=== PATIENT | male | born 1945 | race Caucasian/White ===

== ENCOUNTER → 2021-08-29 11:09 | Outpatient (CLI) | payer MEDICARE, SELFPAY ==
--- NOTE | ~2021-08-29 | XR_ITS ---
EXAMINATION: XR ankle LT min 3V DATE: 08/29/2021 11:52 INDICATION: Left ankle injury and pain. TECHNIQUE: 4 views of left ankle were obtained. COMPARISON: None. FINDINGS: There is an oblique fracture of medial malleolus in near-anatomic alignment. There is a com minuted fracture of distal fibula with medial aspect of the fracture line 3 mm distal to the level of the tibial plafond in near-anatomic alignment. Joint spaces are normal. There is a 4 mm loose body i n the ankle joint posteriorly. There are enthesophytes at the posterior and plantar aspects of calcan eal tuberosity. Ankle soft tissue swelling is noted. There is an ankle joint effusion. IMPRESSION: 1. Nondisplaced fractures of medial and lateral malleoli. 2. Ankle joint effusion with loose body. Reviewed, dictated and finalized at location A. RMATION SYSTEMS AUDITOR
== END ==
PROVIDERS: PCP Family Medicine; Visit Provider Family Medicine
DX: S82.845A Nondisplaced bimalleolar fracture of left lower leg, initial encounter for closed fracture (principal); M79.89 Other specified soft tissue disorders; M25.472 Effusion, left ankle; M23.42 Loose body in knee, left knee
CPT/HCPCS: 73610

== ENCOUNTER 2021-10-24 10:30 | Outpatient (RCR) | payer MEDICARE, SELFPAY ==
--- NOTE | 2021-10-17 11:34 | PTOPEVAL ---
PHYSICAL THERAPY EVALUATION and PLAN OF CARE Thank you for referring Darion Polanco to [facility].? The patient is scheduled to be seen for therapy? 1-2x/week for 2-4 weeks. Please review, sign, date and return this plan of care OBDULIA. I agree with and certify that the following plan of care is medically necessary. Referring Physician Date Attending Provider: Aaron Lynch MD Evaluation Diagnosis left bimalleolar fracture Onset 08/29/2021 Subjective Information fell off the deck and Query Text:As Reported By Patient/ fractured left ankle. he has Family had a walking boot and walker since then. We are going to be working on weaning off the boot and the walker. He has been wearing the boot all the time, including while sleep. I instructed him to stop wearing the boot while sleeping and to start taking the boot off during the day to do his exericses. I also instructed to start putting on his shoe instead of the boot and to stand and weight shift and walk if he feels comfortable (he does not have shoe here today) Through conversation I learn that Darion is nervous about breaking his ankle again because he does fall on occasion. Because of this he relies on the boot. I discussed this with him and encouraged him that with normal activity and walking the ankle will not break again and we will work on strengthening and balance techniques when he is here. Pain Assessment Timing of Pain Assessment Timing of Pain Assessment Assessment Pain Scale Pain Scale Used Numeric (1 - 10) Self Report Pain Assessment Left Ankle(s) Reported Pain Level 2 Pain Description Aching Pain Score Pain Score 2: Self Report Interventions Used Interventions Used By Clinicians Exercise Lower Extremity Range of Motion Ankle/Foot Range of Motion Left Ankle Dorsiflexion With Knee Flexed 10 Range of Motion - Active Ankle Plantarflexion Range of Motion - 45 Active
--- NOTE | 2021-10-27 11:00 | PCPTNOTE ---
Patient called & cancelled scheduled appointment this date due to to snowy weather.
--- NOTE | 2021-11-03 09:48 | PCPTNOTE ---
Patient called & rescheduled today's appt for 11/17/21.
--- NOTE | 2021-11-17 08:49 | PCPTNOTE ---
Patient called & cancelled scheduled appointment this date due to the weather. I spoke with him on the phone and he feels that he is doing well and getting around well and does not need to reschedule this appt.
--- NOTE | 2021-11-17 08:49 | PCPTNOTE ---
Admitting Provider: Attending Provider: Aaron Lynch MD Patient:Darion Polanco Date of :1945 Darion participated in evaluation for decreased mobility secondary to ankle fracture on 10/17/21. He participated in a follow up appt on 10/24/21 and has cancelled several appts due to inclement weather. I spoke with him on the phone today and he states that he feels like he is able to move about and get around safely and does not need any further PT appts; therefore he will be discharged at this time. Thank you for referring this patient to [facility]. Please review, sign, date and return this discharge summary OBDULIA. I have been updated about the patient's current status and I agree with discharge from the above service at this time. Referring Physician Date
== END 2021-11-18 10:58 | disposition home or self-care (01) ==
LOC: ANHPT 10:30
PROVIDERS: PCP Family Medicine; Visit Provider Orthopaedic Surgery
DX: S82.842D Displaced bimalleolar fracture of left lower leg, subsequent encounter for closed fracture with routine healing (principal)
CPT/HCPCS: 97110; 97162

== ENCOUNTER 2023-06-19 11:44 | Emergency (ER) | payer MEDICARE, SELFPAY ==
[2023-06-19] VITALS (13 sets, daily range): BP systolic 104–125; BP diastolic 54–76; PULSE 82–99; RESP 11–21; TEMP 36.6; O2SAT 92–98
--- NOTE | ~2023-06-19 | CT_ITS ---
EXAMINATION: CT brain wo con DATE: 06/19/2023 14:38 INDICATION: Head injury TECHNIQUE: Computed tomography (CT) of the head was performed without intravenous contrast. Sagittal and coronal reconstructions were performed. The mA was adjusted according to patient size. Iterative reconstruction technique was employed. The dose-length product was 1135.00 mGy-cm. COMPARISON: head CT dated 01/21/2018 FINDINGS: No calvarial fracture. No acute intracranial hemorrhage, acute infarction or abnormal extra axial flu id collection. There is mild scattered white matter hypoattenuation consistent with chronic small ves analy ischemic disease. Symmetric prominence of the sulci and ventricles consistent with moderate age-a ppropriate diffuse cerebral volume loss. No mass/mass effect. Changes of interval bilateral intraocul ar lens replacement. The mastoid air cells are normal. Mucous retention cyst at the base of the left maxillary sinus. IMPRESSION: 1. No fracture or acute intracranial process. 2. Age-related changes including moderate diffuse volume loss and mild scattered white matter hypoatt enuation consistent with chronic small vessel ischemic disease. Reviewed, dictated and finalized at location A. IMPRESSION: 1. No fracture or acute intracranial process. 2. Age-related changes including moderate diffuse volume loss and mild scattere d white matter hypoattenuation consistent with chronic small vessel ischemic di sease.
--- NOTE | ~2023-06-19 | XR_ITS ---
EXAMINATION: XR ribs BI 3V w CXR 2V DATE: 06/19/2023 12:47 INDICATION: Bilateral rib pain. Fall. TECHNIQUE: Frontal and lateral views of the chest and 2 views of the right ribs and 2 views of the le ft ribs on a total of 8 radiographs were obtained. COMPARISON: Chest and rib radiographs 01/21/2018, chest CT 02/12/2019 FINDINGS: CHEST TWO VIEWS: The lungs are hyperexpanded with lucencies and chronic interstitial opacities, consi stent with emphysema. No pleural effusion or pneumothorax. The heart size is normal. There is mild ch ronic anterior wedging of multiple vertebral bodies. BILATERAL RIBS: There are old healed bilateral rib fractures. IMPRESSION: 1. Old healed bilateral rib fractures. No acute fracture identified. 2. Emphysema. Reviewed, dictated and finalized at location A.
--- NOTE | 2023-06-19 14:11 | ED.FALL ---
HPI - Fall General Chief Complaint: Fall Stated Complaint: rib pain Time Seen by Provider: 06/19/23 13:42 History of Present Illness HPI Narrative: 57-year-old male present emergency department for evaluation for left-sided rib pain after having a ground-level fall on the . Patient states that he does have issues with gait instability and was walking while carrying food and patient states he stumbled. He struck his head but denies any loss consciousness. Patient does have left-sided rib tenderness to palpation. Patient does report generalized tenderness everywhere. Related Data Home Medications Medication Instructions Recorded Confirmed acetazolamide 125 mg tablet 125 mg PO .PRN 09/01/21 04/27/23 lisinopril 40 mg tablet 40 mg PO DAILY 09/01/21 04/27/23 phenytoin sodium extended 100 mg 100 mg PO TID 09/01/21 04/27/23 capsule rosuvastatin 5 mg tablet 5 mg PO DAILY 09/01/21 04/27/23 vit C 250 mg-vit E 90 mg-zinc 40 1 tablet PO BID 04/27/23 04/27/23 mg-copper 1 [id number] capsule (PreserVision AREDS-2) Allergies Allergy/AdvReac Type Severity Reaction Status Date / Time No Known Allergies Allergy Verified 06/19/23 11:45 Review of Systems Review of Systems: All systems reviewed & are unremarkable except as noted in HPI and below PMFSH Past Medical History Medical History 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 Epilepsy Essential (primary) hypertension Personal history of colonic polyps Thoracic aortic aneurysm, without rupture, unspecified Family History Family History Other Heart disease Social History Social History (Updated 05/21/23 @ 12:24 by TIERRA Rosales) Smoking status: Former smoker Alcohol intake: current Substance use: never Lack of Transportation: No Lack of Food: Never True Current Housing: I Have Housing Concerned About Future Housing: No Difficulty Paying Gas/Electric Bills: No Difficulty Paying for Meds: No Currently Unemployed: No Education: Master's Degree or Higher Difficulty w/ Childcare or Family Care: No Living arrangements: with family Occupation/Education: retired Gender identity (if verbalized by the patient): Male Sexual Orientation (if Verbalized by the Patient): Straight or Heterosexual Exam Narrative: APPEARANCE: Well appearing, no pain, no distress, well-nourished. HEAD: normocephalic, atraumatic. EYES: PERRLA/EOMI, conjunctivae clear. NOSE: Normal no drainage NECK: Supple. No adenopathy, no masses. RESPIRATORY: Airway patent, respirations nonlabored. Clear to auscultation bilaterally, no rales, rhonchi, wheezing. CARDIOVASCULAR: Regular rate and rhythm without murmurs rubs or gallops. ABDOMINAL: No abdominal tenderness to palpation MUSCULOSKELETAL: Moves all extremities. Left-sided rib tenderness to palpation NEURO: Alert. Cranial nerves II through XII intact. Grossly intact SKIN: Warm, dry. Normal Color Course Course Emergency Course: 77-year-old male presented to ED for evaluation of left-sided rib pain after having a ground-level fall. Patient does have a healing laceration to his scalp, no laceration repair needed. Head CT is being ordered to evaluate for intracranial abnormality. Head CT was negative for acute intracranial normality. No evidence of rib fractures on the chest x-ray. Patient was provided medications for pain control and provided incentive spirometer in the ED. Patient will be provided medications for pain control for home. Patient and family were updated on the results and on reasons to return to the emergency department. All questions concerns were addressed and patient was well-appearing at time of discharge Vital Signs Vital signs:
[2023-06-19] MEDS: HYDROcodone/acetaminophen (*CRX) 5-325 MG TABLET 1 TAB PO (14:14)
[2023-06-19] MEDS: CYCLOBENZAPRINE HCL 10 MG TABLET PO (14:15)
--- NOTE | 2023-06-19 14:59 | PC.NURSE ---
respiratory therapy educated pt on incentive spirometer use and pt verbalized and return demonstrated use to RN.
== END 2023-06-19 15:10 | disposition home or self-care (01) ==
PROVIDERS: Emergency Provider Emergency Medicine; PCP Family Medicine
DX: S20.212A Contusion of left front wall of thorax, initial encounter (principal); S09.90XA Unspecified injury of head, initial encounter; W01.0XXA Fall on same level from slipping, tripping and stumbling without subsequent striking against object, initial encounter; J44.9 Chronic obstructive pulmonary disease, unspecified; I25.10 Atherosclerotic heart disease of native coronary artery without angina pectoris; G40.909 Epilepsy, unspecified, not intractable, without status epilepticus; I71.20 Thoracic aortic aneurysm, without rupture, unspecified; Z87.891 Personal history of nicotine dependence
CPT/HCPCS: 70450; 71046; 71110; 99284; A9270

== ENCOUNTER 2024-09-08 09:44 | Emergency (ER) | payer MEDICARE, SELFPAY ==
--- NOTE | ~2024-09-08 | CT_ITS ---
EXAMINATION: CT hip LT wo con DATE: 09/08/2024 11:53 INDICATION: Lucency at the left greater trochanter. TECHNIQUE: High resolution computed tomography (CT) of the left hip was performed without intravenous contrast. Additional sagittal and coronal reconstructions were performed. Automated exposure control and iterative reconstruction technique were employed. The dose-length product was 212.12 mGy-cm. COMPARISON: 09/08/2024 FINDINGS: Bone alignment is normal. No fracture or suspected osteonecrosis. No evident lytic lesion at the grea ter trochanter with artifactual appearance of a lytic lesion on prior CT resulting from superimpositi on of soft tissue shadows. There is and 8 mm nonaggressive likely benign lytic lesion at the posterio r inferior intratrochanteric region of the proximal left femur with thin sclerotic margins. Mild oste oarthritis at the left hip and sacroiliac joints. L5-S1 facet joint osteoarthritis, severe on the lef t and at least moderate severity on the right. Enthesopathic calcifications at the left ischial tuber osity origin of the proximal left hamstring tendons. Moderate diverticulosis along the visualized sig moid colon without adjacent from trace stranding to suggest diverticulitis. Prostatomegaly measuring 5.2 x 4.0 cm. No pathologically enlarged left pelvic or inguinal lymphadenopathy. IMPRESSION: 1. No acute osseous abnormality. 2. 8 mm likely benign lytic lesion with thin sclerotic margins at the inferior intratrochanteric prox imal left femur. No lytic lesion at the left greater trochanter at the site of the likely artifactual lucency identified on prior radiographs. Reviewed, dictated and finalized at location A. R SOFTENER SERVICE SUPERVISOR IMPRESSION: 1. No acute osseous abnormality. 2. 8 mm likely benign lytic lesion with thin sclerotic margins at the inferior intratrochanteric proximal left femur. No lytic lesion at the left greater troc hanter at the site of the likely artifactual lucency identified on prior radiog raphs.
--- NOTE | ~2024-09-08 | XR_ITS ---
XR hip LT 2V w AP pelvis Ordering provider: Liam Jerome III, DO History: . fall, pain . Comparison: None. FINDINGS: BONES: Longitudinal lucency is seen in the area of the greater trochanter which may be a summation sh adow but fracture cannot be excluded. Follow-up and further evaluation advised. HIP JOINT SPACES: Normal. SACROILIAC JOINT SPACES/LUMBAR SPINE: The sacroiliac joint spaces are normal. Mild degenerative eastman es of the visualized lower lumbar spine. PUBIC SYMPHYSIS: Normal. SOFT TISSUES: Normal. IMPRESSION: Possible fracture in the left greater trochanter. Further evaluation advised. Reviewed, dictated and finalized at location A. ER OPERATOR HELPER
--- NOTE | ~2024-09-08 | XR_ITS ---
EXAMINATION: XR ribs BI 3V w CXR 2V DATE: 09/08/2024 10:55 INDICATION: Bilateral rib pain post fall TECHNIQUE: AP and lateral views of the chest and 3 views of the left ribs and 3 views of the right ri bs ribs were obtained. COMPARISON: Chest radiograph dated 06/19/23. And CT dated 02/12/2019 FINDINGS: Again seen are the posterior right 10th rib fracture, few old anterior right rib fractures and a few lateral left rib fractures. No definitively new or acute appearing rib fractures identified. Lungs ar e hyperexpanded with flattening of the diaphragm, increased retrosternal clear space and increased dru cency in the upper lung zones consistent with emphysema better appreciated on prior CT mild elevation the left hemidiaphragm with chronic linear discoid atelectasis/scarring at the lingula. No other air space opacities, pulmonary edema, pleural effusion or pneumothorax. Heart size is normal. Mild thorac ic spondylosis with chronic minimal to mild anterior wedging of a few mid and lower thoracic vertebra l bodies. IMPRESSION: 1. Old healed bilateral rib fractures. No acute fracture identified. 2. Emphysema and mild chronic scarring at the lingula. Reviewed, dictated and finalized at location A. LE WIRE INSERTER
[2024-09-08 10:13] VITALS: BP 128/65; PULSE 94; RESP 16; TEMP 36.4; O2SAT 93
[2024-09-08 11:58] LABS: Basophils Percent Auto 0.5 % (0.2-1.2); Eosinophils Absolute Auto 0.1 K/mm3 (0-0.3); Eosinophils Percent Auto 1.6 % (0-4.4); Hematocrit 38.4 % (42.0-52.0); Hemoglobin 12.6 g/dL (14.0-18.0); Immature Granulocyte Absolute 0.03 K/mm3 (0.00-0.031); Immature Granulocyte Percent A 0.4 % (0-0.5); Lymphocytes Absolute Auto 0.93 K/mm3 (0.9-3.2); Lymphocytes Percent Auto 10.9 % (18.3-44.2); Mean Corpuscular HGB Conc 32.8 g/dl (32-36); Mean Corpuscular Hemoglobin 31.6 pg (26-34); Mean Corpuscular Volume 96.2 fl (80-100); Mean Platelet Volume 9.5 fl (7.4-10.4); Monocytes Absolute Auto 1.1 K/mm3 (0.1-0.6); Monocytes Percent Auto 12.7 % (2.6-8.5); Neutrophils Absolute Auto 6.3 K/mm3 (1.3-6.7); Neutrophils Percent Auto 73.9 % (45.5-73.1); Platelet Count Result 263 k/mm3 (150-375); Red Blood Count 3.99 M/mm3 (4.6-6.20); Red Cell Distribution Width 13.2 % (11.5-14.5); White Blood Count 8.6 K/mm3 (4.5-10.0)
--- NOTE | 2024-09-08 12:01 | ED_ITS ---
HPI - Fall General Chief Complaint: Fall Stated Complaint: fall Time Seen by Provider: 09/08/24 11:20 History of Present Illness HPI Narrative: Pt presents with complaints of left hip and left rib pain afer ground level fall. Pt denies LOC or neck pain. 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 Epilepsy Essential (primary) hypertension Personal history of colonic polyps Protein-calorie malnutrition, mild Thoracic aortic aneurysm, without rupture, unspecified Family History Family History Other Heart disease Social History Social History Smoking status: Former smoker Alcohol intake: current Substance use: never Substance use type: does not use Lack of Transportation: No Lack of Food: Never True Current Housing: I Have Housing Concerned About Future Housing: No Difficulty Paying Gas/Electric Bills: No Difficulty Paying for Meds: No Currently Unemployed: No Education: Master's Degree or Higher Difficulty w/ Childcare or Family Care: No Living arrangements: with family Occupation/Education: retired Gender identity (if verbalized by the patient): Male Sexual Orientation (if Verbalized by the Patient): Straight or Heterosexual Exam 2 Const: General: healthy appearing and no acute distress Nutritional Appearance: well nourished Orientation/consciousness: patient oriented x3 Limitations: no limitations HENMT: Head: normal to inspection Eyes: Pupils: Equal, round and reactive pupils present Neck: Neck: normal visual inspection Chest: Chest palpation & inspection: normal inspection of the chest and tenderness rib (left lateral ribs) Cardio: Rate: regular rate Rhythm: regular rhythm GI: Auscultation: normal bowel sounds Skin: General skin exam: normal color Rashes: no rashes Wounds: no wounds Neuro: General: patient oriented x3, moves all extremities and CN's II-XI intact bilaterally Speech: normal speech Extrem: Other: tender left hip to palpation Psych: Mental Status: mental status grossly normal Affect: normal affect Attitude: cooperative Course Vital Signs Vital signs: Vital Signs Temperature 97.5 F L 09/08/24 10:13 Pulse Rate 94 09/08/24 10:13 Respiratory Rate 16 09/08/24 10:13 Blood Pressure 128/65 09/08/24 10:13 Pulse Oximetry 93 09/08/24 10:13 Oxygen Delivery Room Air 09/08/24 10:13 Temperature 97.5 F L 09/08/24 10:13 Pulse Rate 84 09/08/24 13:30 Respiratory Rate 16 09/08/24 13:30 Blood Pressure 138/86 09/08/24 13:30 Pulse Oximetry 98 09/08/24 13:30 Oxygen Delivery Room Air 09/08/24 10:13 MDM - Fall MDM Narrative Medical decision making narrative: Pt suffered glf has some pain in left hip and left ribs. will get x rays. possiblew lucency greater troch left hip cxr fine. will get CT hip. CT shows no fx at mentioned site but has benign lytic lesion. will have follow up with ortho and prescribe some pain meds. Lab Data 09/08/24 11:44 09/08/24 11:44 Labs: Lab Results 09/08/24 Range/Units 11:44 WBC 8.6 (4.5-10.0) K/mm3 RBC 3.99 L (4.6-6.20) M/mm3 Hgb 12.6 L (14.0-18.0) g/dL Hct 38.4 L (42.0-52.0) % MCV 96.2 (80-100) fl MCH 31.6 (26-34) pg MCHC 32.8 (32-36) g/dl RDW 13.2 (11.5-14.5) % Plt Count 263 (150-375) k/mm3 MPV 9.5 (7.4-10.4) fl Immature Gran % (Auto) 0.4 (0-0.5) % Neut % (Auto) 73.9 H (45.5-73.1) % Lymph % (Auto) 10.9 L (18.3-44.2) % Marion % (Auto) 12.7 H (2.6-8.5) % Eos % (Auto) 1.6 (0-4.4) % Baso % (Auto) 0.5 (0.2-1.2) % Lymph # (Auto) 0.93 (0.9-3.2) K/mm3 Marion # (Auto) 1.1 H (0.1-0.6) K/mm3 Eos # (Auto) 0.1 (0-0.3) K/mm3 Baso # (Auto) 0.0 (0.0-0.1) K/mm3 Abs Immat Gran (auto) 0.03 (0.00-0.031) K/mm3 Absolute Neuts (auto) 6.3 (1.3-6.7) K/mm3 Absolute Nucleated RBC 0.000 (0.0-0.012) K/mm3 Nucleated RBC % 0.0 (0.0-0.2) % PT 14.3 (11.1-14.7) Seconds INR 1.1 APTT 25.9 (22.3-36.8) Seconds Sodium 136 L (137-145) mmol/L Potassium 4.0 (3.4-5.0) mmol/L Chloride 105 (98-107) mmol/L Carbon Dioxide 26 (22-30) mmol/L Anion Gap 5 (4-12) mmol/L BUN 12 (9-20) mg/dL Creatinine 0.60 L (0.7-1.3) mg/dL Estim Creat Clear Calc 78 ml/min Estimated GFR > 60 (59 - ) Glucose 113 H (65-110) mg/dL Calcium 8.7 (8.4-10.2) mg/dL Total Bilirubin 0.6 (0.2-1.3) mg/dL AST 28 (17-59) U/L ALT 33 (6-50) U/L Alkaline Phosphatase 119 (38-126) U/L Total Protein 7.0 (6.3-8.2) g/dL Albumin 4.2 (3.5-5.1) g/dL Blood Type B Positive Antibody Screen Negative Discharge Plan Discharge Clinical Impression: Lytic bone lesion of hip Patient Disposition: Home, Self-Care Condition: Stable Instructions: Antibiotic Form, Fall Prevention for Older Adults (ED), Osteolysis (ED) Patient Language: [place] Citizen Prescriptions: New hydrocodone-acetaminophen 5-325 mg tablet 1 tablet PO Q8H PRN (Reason: pain) Qty: 14 0RF No Action acetaminophen [Tylenol Extra Strength] 500 mg tablet 1,000 mg PO DAILY PRN (Reason: pain) Qty: 90 0RF Breztri Aerosphere 160-9-4.8 mcg/actuation HFA aerosol inhaler 2 inh inhalation BID Qty: 10.7 0RF PreserVision AREDS-2 250-90-40-1 mg capsule 1 tablet PO BID phenytoin sodium extended 100 mg capsule 200 mg PO BID Qty: 400 1RF rosuvastatin 5 mg tablet 5 mg PO DAILY Qty: 100 1RF lisinopril 40 mg tablet 40 mg PO DAILY Qty: 100 1RF Follow-up/Referrals: Kvng Cook MD [Primary Care Provider] -
[2024-09-08 12:08] LABS: Alanine Aminotransferase 33 U/L (6-50); Albumin Level 4.2 g/dL (3.5-5.1); Alkaline Phosphatase 119 U/L (38-126); Anion Gap 5 mmol/L (4-12); Aspartate Amino Transferase 28 U/L (17-59); Bilirubin,Total 0.6 mg/dL (0.2-1.3); Blood Urea Nitrogen 12 mg/dL (9-20); Calcium 8.7 mg/dL (8.4-10.2); Carbon Dioxide 26 mmol/L (22-30); Chloride 105 mmol/L (98-107); Estimated CRCL calculation 78 ml/min; Estimated Glomerular Filt Rate > 60; Glucose 113 mg/dL (65-110); Sodium 136 mmol/L (137-145)
[2024-09-08 12:11] LABS: INR 1.1; Prothrombin Time 14.3 Seconds (11.1-14.7)
[2024-09-08 12:12] LABS: Partial Thromboplastin Time 25.9 Seconds (22.3-36.8)
[2024-09-08 13:30] VITALS: BP 138/86; PULSE 84; RESP 16; O2SAT 98
== END 2024-09-08 13:31 | disposition home or self-care (01) ==
PROVIDERS: Emergency Provider Emergency Medicine; PCP Family Medicine
DX: S79.912A Unspecified injury of left hip, initial encounter (principal); M89.9 Disorder of bone, unspecified; I25.10 Atherosclerotic heart disease of native coronary artery without angina pectoris; I10 Essential (primary) hypertension; J43.9 Emphysema, unspecified; G40.909 Epilepsy, unspecified, not intractable, without status epilepticus; Z86.0100 Personal history of colon polyps, unspecified; Z87.891 Personal history of nicotine dependence; Z79.899 Other long term (current) drug therapy; W18.30XA Fall on same level, unspecified, initial encounter
CPT/HCPCS: 36415; 71046; 71110; 73502; 73700; 80053; 85025; 85610; 85730; 86850; 86900; 86901; 96361; 96374; 99284; J2405; J7030

== ENCOUNTER 2025-04-14 13:03 | Inpatient (IN) | payer MEDICARE, SELFPAY ==
[2025-04-14] VITALS (16 sets, daily range): BP systolic 110–134; BP diastolic 66–89; PULSE 100–118; RESP 18–28; TEMP 36.4–36.6; O2SAT 91–96; BMI 19.8
--- NOTE | ~2025-04-14 | XR_ITS ---
XR chest 1V portable 04/14/2025 13:50 Indication: Shortness of breath Procedure: AP portable chest Comparison: Comparison to multiple prior studies sequentially, with oldest reviewed study dated 04/17. Findings: There are healed left lower rib fractures. Mild chronic interstitial infiltrates of the dariana g bases. The lungs are hyperinflated which is consistent with, but not diagnostic of chronic obstruct zachary pulmonary disease. Mildly elevated left diaphragm. Blunting left lateral costophrenic recess may represent a small effusion or pleural thickening. Impression: 1: Blunting left lateral costophrenic recess may represent a small effusion or pleural thickening. Reviewed, dictated and finalized at location A. Impression: 1: Blunting left lateral costophrenic recess may represent a small effusion or pleural thickening.
--- NOTE | ~2025-04-14 | CT_ITS ---
EXAMINATION: CTA chest PE protocol DATE: 04/14/2025 18:32 INDICATION: sudden breathlessness, hypoxia, tachycardia TECHNIQUE: Computed tomography angiography (CTA) of the chest was performed with 100 mL Omnipaque-350 intravenous contrast timed to evaluate the pulmonary arteries. Coronal maximum intensity projection 3D-reconstructions were created by the technologist. The dose-length product (DLP) was 317.59 mGy-cm. Automated exposure control and iterative reconstruction technique were employed. COMPARISON: X-ray chest, same date; CT chest 02/12/2019. FINDINGS: There is mild motion artifact throughout the scan. Lung parenchyma and airways: Severe emphysematous change. Lingular scar/atelectasis. 4 mm right upper lobe pulmonary nodule, stable since 2019, likely granuloma. Patent airways. Pleura: Unremarkable. Thoracic inlet, axillae and chest wall: Unremarkable. Thoracic aorta: Ascending thoracic aorta is dilated to 4.3 cm. Moderate arch calcification. No dissec tion. Mediastinum: Dilated central pulmonary arteries as can be seen with pulmonary arterial hypertension. Heart and pericardium: Mild cardiomegaly. Left ventricular hypertrophy. Small pericardial effusion. Coronary artery calcifications: Moderate. Upper abdomen: No significant finding. Bones: No acute osseous finding. Pulmonary arteries: Study quality: Adequate. No pulmonary emboli detected. IMPRESSION: No CT evidence of acute pulmonary embolus. No acute process detected in the chest. Ascending thoracic aortic ectasia. Cardiomegaly with left ventricular hypertrophy. Small pericardial effusion. Reviewed, dictated and finalized at location K.
--- NOTE | 2025-04-14 13:23 | ECG_ITS ---
Test Date: 2025-04-14 13:37:50 Measurements Intervals [place] Rate: 109 P: 103 HI: 227 QRS: -18 QRSD: 110 T: 41 QT: 321 QTc: 433 Interpretive Statements SINUS TACHYCARDIA WITH FIRST DEGREE AV BLOCK WITH FREQUENT VENTRICULAR PREMATURE COMPLEXES INDETERMINATE AXIS RIGHT BUNDLE BRANCH BLOCK [120+ ms QRS DURATION, UPRIGHT V1, 40+ ms S IN I/aVL/V4/V5/V6] BASELINE ARTIFACT LIMITS INTERPRETATION No previous ECG available for comparison Electronically Signed On 04-14-2025 17:06:25 CDT by Che Han M.D.
[2025-04-14 13:57] LABS: Hematocrit 47.3 % (42.0-52.0); Hemoglobin 15.0 g/dL (14.0-18.0); Immature Granulocyte Percent A 0.2 % (0-0.5); Lymphocytes Absolute Auto 1.13 K/mm3 (0.9-3.2); Mean Corpuscular HGB Conc 31.7 g/dl (32-36); Mean Corpuscular Hemoglobin 32.1 pg (26-34); Mean Corpuscular Volume 101.1 fl (80-100); Nucleated Red Blood Cells Absolute Auto 0.000 K/mm3 (0.0-0.012); Nucleated Red Blood Cells Perc 0.0 % (0.0-0.2); Platelet Count Result 317 k/mm3 (150-375); Red Blood Count 4.68 M/mm3 (4.6-6.20); White Blood Count 6.3 K/mm3 (4.5-10.0)
[2025-04-14 14:17] LABS: Alanine Aminotransferase 36 U/L (6-50); Albumin Level 4.4 g/dL (3.5-5.1); Alkaline Phosphatase 123 U/L (38-126); Anion Gap 12 mmol/L (4-12); Aspartate Amino Transferase 34 U/L (17-59); Bilirubin,Total 0.5 mg/dL (0.2-1.3); Blood Urea Nitrogen 11 mg/dL (9-20); Calcium 9.2 mg/dL (8.4-10.2); Carbon Dioxide 26 mmol/L (22-30); Chloride 100 mmol/L (98-107); Estimated CRCL calculation 77 ml/min; Estimated Glomerular Filt Rate > 60; Glucose 131 mg/dL (65-110); Potassium 4.2 mmol/L (3.4-5.0); Sodium 138 mmol/L (137-145); Total Protein 7.2 g/dL (6.3-8.2)
[2025-04-14 14:20] LABS: INR 1.0; Partial Thromboplastin Time 25.5 Seconds (22.3-36.8); Prothrombin Time 13.1 Seconds (11.1-14.7)
[2025-04-14 14:32] LABS: Troponin I 0.440 ng/mL (0.000-0.034)
--- NOTE | 2025-04-14 15:23 | ED.GENADULT ---
HPI - General Adult General Chief complaint: Shortness of Breath/Dyspnea Stated complaint: SOB Time Seen by Provider: 04/14/25 14:49 History of Present Illness HPI narrative: 79-year-old male with history atherosclerotic heart disease, thoracic aortic aneurysm, COPD, hypertension, CVA presented emergency department for evaluation for worsening shortness of breath yesterday. Patient does have a previous smoking history but now does uses nicotine gum. Patient reports he started having some shortness breath last night and does feel short of breath today. Patient does have some wheeze on exam. Patient denies having chest pain last night denies any current chest pain. Patient denies any prior history of [place] and denies having any cardiac stents. Related Data Home Medications ?Medication ?Instructions ?Recorded ?Confirmed ?Last Taken ?Type vit C 250 mg-vit E 90 mg-zinc 40 1 tablet PO BID 04/27/23 04/14/25 04/14/25 History mg-copper 1 [id number] capsule (PreserVision AREDS-2) phenytoin sodium extended 100 mg 300 mg PO BID 04/14/25 04/14/25 04/14/25 History capsule Allergies Allergy/AdvReac Type Severity Reaction Status Date / Time No Known Allergies Allergy Verified 11/11/24 13:05 Review of Systems Review of Systems: All systems reviewed & are unremarkable except as noted in HPI and below PMFSH Past Medical History Medical History (Updated 04/14/25 @ 21:10 by Mikie Levine MD) Protein-calorie malnutrition, mild Cigarette nicotine dependence in remission Thoracic aortic aneurysm, without rupture, unspecified Atherosclerotic heart disease of [place] coronary artery without angina pectoris Personal history of colonic polyps Epilepsy COPD (chronic obstructive pulmonary disease) with emphysema Essential (primary) hypertension Family History Family History Mother Dementia Father Heart disease Myocardial infarction Social History Social History Smoking packs per day: 1 Smoking cigarettes per day: 20.0 Years smoked: 50 Smoking pack-years: 50.00 Smoking status: Former smoker Alcohol intake: current Drinks per week: 21 Substance use: never Substance use type: does not use Do You Feel Safe in your Home?: Yes Lack of Transportation: No Lack of Food: Never True Current Housing: I Have Housing Concerned About Future Housing: No Difficulty Paying Gas/Electric Bills: No Difficulty Paying for Meds: No Currently Unemployed: No Education: Master's Degree or Higher Difficulty w/ Childcare or Family Care: No Living arrangements: with family Occupation/Education: retired Gender identity (if verbalized by the patient): Male Sexual Orientation (if Verbalized by the Patient): Straight or Heterosexual Spiritual care concerns: No Exam Narrative: APPEARANCE: Well appearing, no pain, no distress, well-nourished. HEAD: normocephalic, atraumatic. EYES: PERRLA/EOMI, conjunctivae clear. NOSE: Normal no drainage EARS:TMS clear with good light reflex. THROAT: Pharynx clear, no exudate. NECK: Supple. No adenopathy, no masses. RESPIRATORY: Expiratory wheeze CARDIOVASCULAR: Regular rate and rhythm without murmurs rubs or gallops. ABDOMINAL: Soft, nontender, nondistended, normal bowel sounds MUSCULOSKELETAL: Moves all extremities. Strength/ROM intact, No edema, No calf tenderness. NEURO: Alert. Cranial nerves II through XII intact. Grossly intact SKIN: Warm, dry. Normal Color Course Vital Signs Vital signs: Vital Signs Pulse Rate 109 H 04/14/25 13:00 Respiratory Rate 24 H 04/14/25 13:00 Blood Pressure 121/89 04/14/25 13:00 Pulse Oximetry 96 04/14/25 13:00 Oxygen Delivery Nasal Cannula 04/14/25 13:00 Oxygen Flow Rate 3 04/14/25 13:00 Temperature 97.8 F 04/14/25 20:00 Pulse Rate 100 04/14/25 20:08 Respiratory Rate 20 04/14/25 20:08 Blood Pressure 132/73 04/14/25 20:00 Pulse Oximetry 91 04/14/25 20:08 Oxygen Delivery Nasal Cannula 04/14/25 20:08 Oxygen Flow Rate 3 04/14/25 20:08 Fraction of Inspired Oxygen 32 04/14/25 20:08 Medical Decision Making [facility] Narrative Medical decision making narrative: 79-year-old male presents to the emergency department for evaluation for worsening shortness of breath. Patient denies any associated chest pain but does start developing shortness breath last night and to today. Patient EKG showed no evidence of acute STEMI. Patient is afebrile with no leukocytosis and hemoglobin of 15.0. INR 1.0. No acute abnormalities on his CMP was normal kidney function. Patient did have an elevated troponin of 0.440. Does have multiple risk factors for ACS including high cholesterol, hypertension, diabetes and atherosclerosis. Case was discussed with Cardiology and patient was started on IV heparin while he was in the emergency department. Case discussed with hospitalist patient was accepted for admission to the IMU. Patient family were also updated on the results of the workup. Critical Care Procedure Note Authorized and Performed by: Mikie Levine Total critical care time: Approximately 36 minutes Due to a high probability of clinically significant, life threatening deterioration, the patient required my highest level of preparedness to intervene emergently and I personally spent this critical care time directly and personally managing the patient. This critical care time included obtaining a history; examining the patient; pulse oximetry; ordering and review of studies; arranging urgent treatment with development of a management plan; evaluation of patient's response to treatment; frequent reassessment; and, discussions with other providers. This critical care time was performed to assess and manage the high probability of imminent, life-threatening deterioration that could result in multi-organ failure. It was exclusive of separately billable procedures and treating other patients and teaching time. Please see MDM section and the rest of the note for further information on patient assessment and treatment. Differential Diagnosis Differential Diagnosis: COPD, ACS, STEMI, NSTEMI, pulmonary embolism, pneumonia, pneumothorax Vital Signs Vital Signs: Vital Signs Pulse Rate 109 H 04/14/25 13:00 Respiratory Rate 24 H 04/14/25 13:00 Blood Pressure 121/89 04/14/25 13:00 Pulse Oximetry 96 04/14/25 13:00 Oxygen Delivery Nasal Cannula 04/14/25 13:00 Oxygen Flow Rate 3 04/14/25 13:00 Temperature 97.8 F 04/14/25 20:00 Pulse Rate 100 04/14/25 20:08 Respiratory Rate 20 04/14/25 20:08 Blood Pressure 132/73 04/14/25 20:00 Pulse Oximetry 91 04/14/25 20:08 Oxygen Delivery Nasal Cannula 04/14/25 20:08 Oxygen Flow Rate 3 04/14/25 20:08 Fraction of Inspired Oxygen 32 04/14/25 20:08 Lab Data Lab results reviewed: Yes I reviewed the patient's lab results. 04/14/25 13:51 04/14/25 13:51 Labs: Lab Results 04/14/25 Range/Units 13:51 WBC 6.3 (4.5-10.0) K/mm3 RBC 4.68 (4.6-6.20) M/mm3 Hgb 15.0 (14.0-18.0) g/dL Hct 47.3 (42.0-52.0) % MCV 101.1 H (80-100) fl MCH 32.1 (26-34) pg MCHC 31.7 L (32-36) g/dl RDW 13.3 (11.5-14.5) % Plt Count 317 (150-375) k/mm3 MPV 9.6 (7.4-10.4) fl Immature Gran % (Auto) 0.2 (0-0.5) % Neut % (Auto) 70.9 (45.5-73.1) % Lymph % (Auto) 17.9 L (18.3-44.2) % Petroleum % (Auto) 9.2 H (2.6-8.5) % Eos % (Auto) 1.0 (0-4.4) % Baso % (Auto) 0.8 (0.2-1.2) % Lymph # (Auto) 1.13 (0.9-3.2) K/mm3 Petroleum # (Auto) 0.6 (0.1-0.6) K/mm3 Eos # (Auto) 0.1 (0-0.3) K/mm3 Baso # (Auto) 0.1 (0.0-0.1) K/mm3 Abs Immat Gran (auto) 0.01 (0.00-0.031) K/mm3 Absolute Neuts (auto) 4.5 (1.3-6.7) K/mm3 Absolute Nucleated RBC 0.000 (0.0-0.012) K/mm3 Nucleated RBC % 0.0 (0.0-0.2) % PT 13.1 (11.1-14.7) Seconds INR 1.0 APTT 25.5 (22.3-36.8) Seconds Sodium 138 (137-145) mmol/L Potassium 4.2 (3.4-5.0) mmol/L Chloride 100 (98-107) mmol/L Carbon Dioxide 26 (22-30) mmol/L Anion Gap 12 (4-12) mmol/L BUN 11 (9-20) mg/dL Creatinine 0.55 L (0.7-1.3) mg/dL Estim Creat Clear Calc 77 ml/min Estimated GFR > 60 (59 - ) Glucose 131 H (65-110) mg/dL Calcium 9.2 (8.4-10.2) mg/dL Total Bilirubin 0.5 (0.2-1.3) mg/dL AST 34 (17-59) U/L ALT 36 (6-50) U/L Alkaline Phosphatase 123 (38-126) U/L Troponin I 0.440 H* (0.000-0.034) ng/mL Total Protein 7.2 (6.3-8.2) g/dL Albumin 4.4 (3.5-5.1) g/dL Imaging Data Radiologist's impression: Impressions Chest X-Ray 04/14/25 13:53 Impression: 1: Blunting left lateral costophrenic recess may represent a small effusion or pleural thickening. ECG Data EKG #1: EKG Interpretation: tachycardia, sinus rhythm, no ectopy, non-specific ST changes, RBBB, normal QT and NL axis Critical Care Time Critical Care Time Critical Care Time: Yes Total Critical Care Time: 36 Discharge Plan Discharge Clinical Impression: Non-ST elevation [place] (NSTEMI) COPD (chronic obstructive pulmonary disease) with emphysema Qualifiers: Emphysema type: unspecified Qualified Code(s): J43.9 - Emphysema, unspecified Patient Disposition: Still a Patient Condition: Serious
[2025-04-14] MEDS: ASPIRIN 81 MG CHEWABLE TABLET 324 MG PO (15:34)
[2025-04-14] MEDS: HEPARIN SOD/D5W 100 UNITS/ML 25,000 UNITS/250 ML BAG 7 UNITS IV CONT (16:24)
--- NOTE | 2025-04-14 17:19 | ADMGEN ---
This patient, Darion Polanco, was admitted to IMU Room 201-01. Patient/family oriented to hospital policies and general routines including ID bracelet, bed and alarms, visiting hours, pain management, procedures, bathroom and other care routines, personal items, smoking policy, room service/diet, and visiting hours. Information on how to activate the Rapid Response Team has been discussed. Patient/Family are encouraged to report perceived risks to care and to ask questions if they do not understand what they are told or what they should do.
[2025-04-14 18:38] LABS: Troponin I 0.753 ng/mL (0.000-0.034)
--- NOTE | 2025-04-14 19:15 | P.HP_ITS ---
H&P: HPI History of Present Illness Date/Time: 04/14/25 19:15 Chief Complaint: Shortness of breath. Narrative: This is a 79-year-old male with history of tobacco abuse for which he quit smoking about 5 years ago, chronic obstructive pulmonary disease, hypertension, ascending thoracic aortic aneurysm, and epilepsy who presented to the emergency department via EMS from [facility] with complaints of shortness of breath. He is not active at baseline and is mainly an electric scooter but can stand to transfer. states that he is not very active and spends most of the day lying on the couch. He gets easily winded and the patient tells me he has ?spells? where he acutely gets short of breath which passes on its own without intervention after a period of time. He goes on to say that he is not on maintenance inhalers at home and he apparently does not have a rescue inhaler either. Today he had 1 of these spells at about 11:00 where he just could not catch his breath and EMS was summoned. There was no other information provided by the transferring facility and I do not have EMS notes available at this time. SpO2 was documented in the mid 90s on 3 L. The patient tells me that he coughs rarely and is usually nonproductive. He has not had any sick contacts to his knowledge. He also denies fever, chills, sweats, pleuritic pain, palpitations, chest pain, orthopnea, paroxysmal nocturnal dyspnea, lower extremity edema, calf pain, nausea, vomiting, dysphagia, and concerns for aspiration. In the ED: Vital signs on arrival include a temperature of 97.8, blood pressure 121/89, pulse 109, respiratory 24, SpO2 96% on 3 L. his labs were pretty unremarkable aside from a troponin of 0.440. EKG shows sinus tachycardia with first-degree AV block, frequent PVCs, and right bundle-branch block. Chest CTA was negative for pulmonary embolism and acute process. Cardiomegaly with left ventricular hypertrophy and small pericardial effusion were noted. He was given nebulizer treatment with mild benefit. He believes the oxygen placed on him per EMS has helped him the most. He was started on a heparin drip and was given aspirin 324 mg for the elevated troponin he is being admitted in this setting for close monitoring and Cardiology consultation. Review of Systems Review of Systems: 12 systems were reviewed and are negativ e except for as per HPI. [facility] Past Medical History Medical History (Updated 04/14/25 @ 19:41 by Krystyna Galeas PA-C) Protein-calorie malnutrition, mild Cigarette nicotine dependence in remission Thoracic aortic aneurysm, without rupture, unspecified Atherosclerotic heart disease of [place] coronary artery without angina pectoris Personal history of colonic polyps Epilepsy COPD (chronic obstructive pulmonary disease) with emphysema Essential (primary) hypertension Family History Family History Mother Dementia Father Heart disease Myocardial infarction Social History Social History Smoking packs per day: 1 Smoking cigarettes per day: 20.0 Years smoked: 50 Smoking pack-years: 50.00 Smoking status: Former smoker Alcohol intake: current Drinks per week: 21 Substance use: never Substance use type: does not use Do You Feel Safe in your Home?: Yes Lack of Transportation: No Lack of Food: Never True Current Housing: I Have Housing Concerned About Future Housing: No Difficulty Paying Gas/Electric Bills: No Difficulty Paying for Meds: No Currently Unemployed: No Education: Master's Degree or Higher Difficulty w/ Childcare or Family Care: No Living arrangements: with family Occupation/Education: retired Gender identity (if verbalized by the patient): Male Sexual Orientation (if Verbalized by the Patient): Straight or Heterosexual Spiritual care concerns: No Meds Home Medications and Allergies Home Medications ?Medication ?Instructions ?Recorded ?Confirmed ?Type vit C 250 mg-vit E 90 mg-zinc 40 1 tablet PO BID 04/27/23 04/14/25 History mg-copper 1 [id number] capsule (PreserVision AREDS-2) lisinopril 40 mg tablet 40 mg PO DAILY #100 tabs 01/05/25 04/14/25 Rx rosuvastatin 5 mg tablet 5 mg PO DAILY #100 tabs 04/08/25 04/14/25 Rx phenytoin sodium extended 100 mg 300 mg PO BID 04/14/25 04/14/25 History capsule Allergies Allergy/AdvReac Type Severity Reaction Status Date / Time No Known Allergies Allergy Verified 11/11/24 13:05 Vital Signs Vital Signs - 24 hr 04/14/25 13:00 04/14/25 13:20 04/14/25 13:21 Temperature Pulse Rate 109 H 105 H Respiratory Rate 24 H Blood Pressure 121/89 Pulse Oximetry 96 96 Oxygen Delivery Nasal Cannula Nasal Cannula Oxygen Flow Rate 3 3 04/14/25 14:00 04/14/25 15:41 04/14/25 15:45 Temperature Pulse Rate 118 H 104 H 118 H Respiratory Rate 22 H 22 H 21 H Blood Pressure 120/82 125/77 Pulse Oximetry 91 92 Oxygen Delivery Oxygen Flow Rate 04/14/25 16:32 04/14/25 16:56 04/14/25 17:26 Temperature 97.8 F 98 F Pulse Rate 116 H 113 H 118 H Respiratory Rate 28 H 20 18 Blood Pressure 116/70 116/70 134/66 Pulse Oximetry 92 91 95 Oxygen Delivery Oxygen Flow Rate 04/14/25 18:00 Temperature Pulse Rate 107 H Respiratory Rate Blood Pressure Pulse Oximetry Oxygen Delivery Oxygen Flow Rate Exam Narrative: General: Thin, chronically ill-appearing male in the semi-[place] position in bed. Weight: 55.8 kg. BMI: 19.9. HEENT: PERRL, EOMI. Sclera anicteric. Oral mucosa moist. Neck: Supple. No JVD. Respiratory: Mild tachypnea of though he appears in no acute respiratory distress. Occasional pursed lip breathing. Currently on 3 L nasal cannula with an SpO2 in the mid 90s. Lung sounds are slightly diminished and a bit coarse on the left anteriorly but are really otherwise clear to auscultation. Cardiovascular: Tachycardic with frequent ectopy. Gastrointestinal: Abdomen is soft, flat, nontender, and nondistended with positive bowel sounds. Skin: Warm and dry. Extremities: No cyanosis, clubbing, or edema. Radial and pedal pulses intact. No palpable knots or cords. Negative Dominick sign bilaterally. Neurological: Alert. Cranial nerves grossly intact. Atrophic lower limbs. No gross focal deficits to casual conversation. Psychiatric: Pleasant and cooperative with appropriate mood and affect. H&P: Results Labs Labs: Short CBC 04/14/25 Range/Units 13:51 WBC 6.3 (4.5-10.0) K/mm3 Hgb 15.0 (14.0-18.0) g/dL Hct 47.3 (42.0-52.0) % Plt Count 317 (150-375) k/mm3 [facility] 04/14/25 13:51 Sodium 138 Potassium 4.2 Chloride 100 Carbon Dioxide 26 BUN 11 Creatinine 0.55 L Glucose 131 H Calcium 9.2 Cardiac Enzymes 04/14/25 04/14/25 Range/Units 13:51 17:29 Troponin I 0.440 H* 0.753 H* D (0.000-0.034) ng/mL Liver Function 04/14/25 Range/Units 13:51 Total Bilirubin 0.5 (0.2-1.3) mg/dL AST 34 (17-59) U/L ALT 36 (6-50) U/L Alkaline Phosphatase 123 (38-126) U/L Albumin 4.4 (3.5-5.1) g/dL Impressions Chest X-Ray 04/14/25 13:53 Impression: 1: Blunting left lateral costophrenic recess may represent a small effusion or pleural thickening. Chest CTA 04/14/25 18:38 IMPRESSION: No CT evidence of acute pulmonary embolus. No acute process detected in the chest. Ascending thoracic aortic ectasia. Cardiomegaly with left ventricular hypertrophy. Small pericardial effusion. Assessment and Plan Assessment and plan (1) Acute respiratory failure with hypoxia: Code(s): J96.01 - Acute respiratory failure with hypoxia Status: Acute Assessment and Plan: Patient presents with acute worsening of shortness of breath with history of similar ?spells.? May be related to COPD with emphysema however he does not have any significant wheezing on examination. He does not look volume overloaded and there was no evidence of pneumonia on imaging. CTA was negative for pulmonary embolism. There are findings of pulmonary hypertension however. * Currently on 3 L nasal cannula with an SpO2 in the mid 90s. * Will need home O2 oxygen evaluation prior to discharge. * Continue scheduled bronchodilators for now. * No indication for antibiotics or steroids currently. (2) Non-ST elevation myocardial infarction (NSTEMI): Code(s): I21.4 - Non-ST elevation (NSTEMI) myocardial infarction Status: Acute Assessment and Plan: Initial troponin was 0.440, up trending with a 3 hour troponin of 0.753. EKG does not show any acute ST segment depressions or elevations and he is without chest pain. Suspect type 2 myocardial infarction related to hypoxia. * Continue heparin drip started in the emergency department. * NPO after midnight though unlikely acute coronary syndrome. * Echocardiogram ordered. (3) COPD (chronic obstructive pulmonary disease) with emphysema: Qualifiers: Emphysema type: unspecified Qualified Code(s): J43.9 - Emphysema, unspecified Code(s): J43.9 - Emphysema, unspecified Status: Acute Assessment and Plan: As above, he is not on maintenance inhalers nor does he have nebulizers a rescue inhalers at home. * Outpatient pulmonology referral is prudent. * May benefit from seeing a specialist due to findings of pulmonary hypertension as well. (4) Essential (primary) hypertension: Code(s): I10 - Essential (primary) hypertension Status: Acute Assessment and Plan: Blood pressures were reviewed and they have been stable. * Continue lisinopril 40 mg daily and monitor closely. (5) Epilepsy: Qualifiers: Epilepsy type: unspecified Intractability: not intractable Status epilepticus: without status epilepticus Qualified Code(s): G40.909 - Epilepsy, unspecified, not intractable, without status epilepticus Code(s): G40.909 - Epilepsy, unspecified, not intractable, without status epilepticus Status: Acute Assessment and Plan: He has not had a seizure since the . * Continue phenytoin and check check level in a.m. Quality VTE Prophylaxis VTE prophylaxis: pharmacologic ordered (Currently on a heparin drip) The patient has been admitted under observation status. Hospitalist MIPS Advance Care Plan I have confirmed that the patient's Advanced Care Plan is present, code status is documented, or surrogate decision maker is listed in patient medical record.: Yes Medication Reconciliation I have utilized all available resources to obtain, update and review the patients current medications (includes all prescriptions, OTC, herbals, cannabis, and nutritional supplements).: Yes
[2025-04-14 21:08] LABS: Troponin I 0.661 ng/mL (0.000-0.034)
[2025-04-14 22:49] LABS: Partial Thromboplastin Time 58.4 Seconds (22.3-36.8)
[2025-04-15] VITALS (24 sets, daily range): BP systolic 127–147; BP diastolic 71–99; PULSE 75–97; RESP 18–20; TEMP 36.5–36.7; O2SAT 89–97; BMI 20.7
[2025-04-15 06:05] LABS: Hematocrit 40.5 % (42.0-52.0); Hemoglobin 13.1 g/dL (14.0-18.0); Immature Granulocyte Percent A 0.1 % (0-0.5); Lymphocytes Absolute Auto 1.89 K/mm3 (0.9-3.2); Mean Corpuscular HGB Conc 32.3 g/dl (32-36); Mean Corpuscular Hemoglobin 32.3 pg (26-34); Mean Corpuscular Volume 100.0 fl (80-100); Nucleated Red Blood Cells Absolute Auto 0.000 K/mm3 (0.0-0.012); Nucleated Red Blood Cells Perc 0.0 % (0.0-0.2); Platelet Count Result 262 k/mm3 (150-375); Red Blood Count 4.05 M/mm3 (4.6-6.20); White Blood Count 7.6 K/mm3 (4.5-10.0)
[2025-04-15 06:31] LABS: Anion Gap 5 mmol/L (4-12); Blood Urea Nitrogen 10 mg/dL (9-20); Calcium 9.4 mg/dL (8.4-10.2); Carbon Dioxide 28 mmol/L (22-30); Chloride 100 mmol/L (98-107); Estimated CRCL calculation 85 ml/min; Estimated Glomerular Filt Rate > 60; Glucose 99 mg/dL (65-110); Magnesium 2.1 mg/dL (1.6-2.3); Partial Thromboplastin Time 53.3 Seconds (22.3-36.8); Potassium 4.2 mmol/L (3.4-5.0); Sodium 133 mmol/L (137-145)
[2025-04-15] MEDS: ROSUVASTATIN 5 MG TABLET PO (09:09)
[2025-04-15] MEDS: PHENYTOIN SODIUM 100 MG EXTENDED RELEASE CAP 300 MG PO (09:09)
[2025-04-15] MEDS: OPTI-GEN TAB 1 TABLET PO ×2 (09:09→18:35)
[2025-04-15] MEDS: ASPIRIN 81 MG CHEWABLE TABLET PO (09:10)
[2025-04-15] MEDS: PERFLUTREN LIPID MICROSPHERES 1.5 ML VIAL DILUTED TO 10 ML TOTAL VOLUME IV PUSH (11:10)
--- NOTE | 2025-04-15 11:12 | P.PNIM_ITS ---
Progress Note: A&P Assessment and Plan (1) Essential (primary) hypertension: Code(s): I10 - Essential (primary) hypertension Status: Acute (2) Atherosclerotic heart disease of [place] coronary artery without angina pectoris: Qualifiers: [place] vs. transplanted heart: [place] heart Qualified Code(s): I25.10 - Atherosclerotic heart disease of [place] coronary artery without angina pectoris Code(s): I25.10 - Atherosclerotic heart disease of [place] coronary artery without angina pectoris Status: Acute (3) Non-ST elevation myocardial infarction (NSTEMI): Code(s): I21.4 - Non-ST elevation (NSTEMI) myocardial infarction Status: Acute (4) Non-ST elevation [place] (NSTEMI): Code(s): I21.4 - Non-ST elevation (NSTEMI) myocardial infarction Status: Acute (5) Thoracic aortic aneurysm, without rupture, unspecified: Qualifiers: Thoracic aorta location: ascending aorta Qualified Code(s): I71.21 - Aneurysm of the ascending aorta, without rupture Code(s): I71.20 - Thoracic aortic aneurysm, without rupture, unspecified Status: Acute Plan (1) Acute respiratory failure with hypoxia: Code(s): J96.01 - Acute respiratory failure with hypoxia Status: Acute Assessment and Plan: patient has COPD history CTA was negative for pulmonary embolism. There are findings of pulmonary hypertension however. Continue bronchodilators methylprednisolone 60 mg q.6 hours IV Start Symbicort Non-ST elevation myocardial infarction (NSTEMI): Code(s): I21.4 - Non-ST elevation (NSTEMI) myocardial infarction Status: Acute Assessment and Plan: Initial troponin was 0.440, up trending with a 3 hour troponin of 0.753. EKG showed sinus rhythm no specific ST or T-wave changes Continue heparin drip started in the emergency department. Echocardiogram ordered. consult armored car guard and driver for evaluation treatment COPD (chronic obstructive pulmonary disease) with emphysema: Qualifiers: Emphysema type: unspecified Qualified Code(s): J43.9 - Emphysema, unspecified Code(s): J43.9 - Emphysema, unspecified Status: Acute Assessment and Plan: As above, he is not on maintenance inhalers nor does he have nebulizers a rescue inhalers at home. Outpatient pulmonology referral is prudent. Essential (primary) hypertension: Code(s): I10 - Essential (primary) hypertension Status: Acute Assessment and Plan: Blood pressures were reviewed and they have been stable. * Continue lisinopril 40 mg daily and monitor closely. Epilepsy: Qualifiers: Epilepsy type: unspecified Intractability: not intractable Status epilepticus: without status epilepticus Qualified Code(s): G40.909 - Epilepsy, unspecified, not intractable, without status epilepticus Code(s): G40.909 - Epilepsy, unspecified, not intractable, without status epilepticus Status: Acute Assessment and Plan: He has not had a seizure since the . * Continue phenytoin and check check level in a.m. * Severe malnutrition Consult dietitian Subjective Date/time seen: 04/15/25 11:12 Interval history: patient is afebrile over the night Patient is on 3 L oxygen in the night Patient denies chest pain today Shortness breath is improving Patient denies abdomen pain nausea vomiting diarrhea Exam Narrative: GENERAL: Pleasant, frail, cachexia in no acute distress. - EYES: EOMI. Anicteric. - HENT: Moist mucous membranes. - LUNGS: Decreased breath sound bilater ally, no wheezing, rhonchi, or rales. - CARDIOVASCULAR: Regular rate and rhyth m. No murmur. No JVD. - ABDOMEN: Soft, non-tender and non-dist ended. No palpable masses. - EXTREMITIES: No edema. Peripheral puls es 2+. Non-tender. - NEUROLOGIC: No focal neurological defi cits. CN II-XII grossly intact. - PSYCHIATRIC: Awake, Alert and oriented x 3. Appropriate mood and affect. - SKIN: No rashes or lesions. Warm. - LYMPH: No cervical lymphadenopathy. Objective Data Vital Signs Vital Signs: Vital Signs - 24 hr 04/14/25 13:00 04/14/25 13:20 04/14/25 13:21 Temperature Pulse Rate 109 H 105 H Respiratory Rate 24 H Blood Pressure 121/89 Pulse Oximetry 96 96 Oxygen Delivery Nasal Cannula Nasal Cannula Oxygen Flow Rate 3 3 Fraction of Inspired Oxygen 04/14/25 14:00 04/14/25 15:41 04/14/25 15:45 Temperature Pulse Rate 118 H 104 H 118 H Respiratory Rate 22 H 22 H 21 H Blood Pressure 120/82 125/77 Pulse Oximetry 91 92 Oxygen Delivery Oxygen Flow Rate Fraction of Inspired Oxygen 04/14/25 16:32 04/14/25 16:56 04/14/25 17:26 Temperature 97.8 F 98 F Pulse Rate 116 H 113 H 118 H Respiratory Rate 28 H 20 18 Blood Pressure 116/70 116/70 134/66 Pulse Oximetry 92 91 95 Oxygen Delivery Oxygen Flow Rate Fraction of Inspired Oxygen 04/14/25 17:30 04/14/25 18:00 04/14/25 20:00 Temperature 97.8 F Pulse Rate 107 H 102 H Respiratory Rate 18 Blood Pressure 132/73 Pulse Oximetry 95 94 Oxygen Delivery Nasal Cannula Oxygen Flow Rate 3 Fraction of Inspired Oxygen 04/14/25 20:00 04/14/25 20:00 04/14/25 20:06 Temperature Pulse Rate 101 H 101 H 100 Respiratory Rate 20 20 Blood Pressure Pulse Oximetry 91 Oxygen Delivery Nasal Cannula Oxygen Flow Rate 3 Fraction of Inspired Oxygen 32 04/14/25 20:08 04/14/25 21:47 04/14/25 23:59 Temperature 97.6 F Pulse Rate 100 104 H 105 H Respiratory Rate 20 18 Blood Pressure 110/66 Pulse Oximetry 91 95 Oxygen Delivery Nasal Cannula Oxygen Flow Rate 3 Fraction of Inspired Oxygen 32 04/15/25 00:00 04/15/25 00:00 04/15/25 01:53 Temperature Pulse Rate 91 91 87 Respiratory Rate 18 20 Blood Pressure Pulse Oximetry 95 Oxygen Delivery Nasal Cannula Oxygen Flow Rate 3 Fraction of Inspired Oxygen 32 04/15/25 02:00 04/15/25 02:02 04/15/25 04:00 Temperature Pulse Rate 86 90 76 Respiratory Rate 20 20 Blood Pressure Pulse Oximetry 95 Oxygen Delivery Nasal Cannula Oxygen Flow Rate 3 Fraction of Inspired Oxygen 32 04/15/25 04:00 04/15/25 04:00 04/15/25 06:00 Temperature 97.7 F Pulse Rate 76 84 77 Respiratory Rate 18 Blood Pressure 147/99 H Pulse Oximetry 91 Oxygen Delivery Oxygen Flow Rate Fraction of Inspired Oxygen 04/15/25 07:56 04/15/25 08:09 04/15/25 08:09 Temperature 97.9 F Pulse Rate 82 77 77 Respiratory Rate 20 20 20 Blood Pressure 127/83 Pulse Oximetry 96 96 Oxygen Delivery Nasal Cannula Oxygen Flow Rate 3 Fraction of Inspired Oxygen 04/15/25 08:19 Temperature Pulse Rate 78 Respiratory Rate 20 Blood Pressure Pulse Oximetry Oxygen Delivery Oxygen Flow Rate Fraction of Inspired Oxygen Intake/Output Intake/Output: Intake & Output 04/12/25 04/13/25 04/14/25 04/15/25 23:59 23:59 23:59 23:59 Intake Total 52 57.6 Output Total 400 600 Balance -348 -542.4 Meds/Results Medications: Active Medications Generic Name Dose Route Start Last Admin Trade Name Freq PRN Reason Stop Dose Admin Acetaminophen 650 mg 04/14/25 19:49 Acetaminophen 325 Mg Tablet PO Q6H PRN Mild Pain (1-3) or Fever Aspirin 81 mg 04/15/25 08:00 04/15/25 09:10 Aspirin 81 Mg Chewable Tablet PO 81 mg DAILY@0800 SAKINA Administration Heparin Sodium (Porcine) 4,000 units 04/14/25 15:29 04/15/25 06:57 Heparin Sodium 5,000 Units/Ml Vial IV PUSH 4,000 units PRN PRN Administration aPTT less than 55 seconds Heparin Sodium (Porcine) 2,500 units 04/14/25 15:29 04/14/25 23:48 Heparin Sodium 5,000 Units/Ml Vial IV PUSH 2,500 units PRN PRN Administration aPTT 55 - 70 seconds Heparin Sodium/Dextrose 25,000 units in 250 mls @ 10 mls/hr 04/14/25 15:30 04/15/25 07:02 Heparin Sodium/D5w 100 Units/Ml IV CONT 1,000 units/hr .Q24H SAKINA 10 mls/hr Titration Protocol 1,000 UNITS/HR Levalbuterol HCl 0.63 mg 04/14/25 20:00 04/15/25 08:08 Levalbuterol Neb 1.25 Mg/3 Ml INHALATION 0.63 mg Q6HRT SAKINA Administration Lisinopril 40 mg 04/15/25 09:00 04/15/25 09:09 Lisinopril 20 Mg Tablet PO 40 mg DAILY SAKINA Administration Multivitamins/Minerals 1 tablet 04/15/25 09:00 04/15/25 09:09 Opti-Gen Tab PO 1 tablet BID SAKINA Administration Perflutren Lipid Microsphere 0 ml 04/14/25 19:49 Perflutren Lipid Microspheres 1.5 Ml Vial Diluted To 10 Ml Total Volume IV PUSH 04/17/25 19:49 ONCE PRN adequate visualization Protocol Phenytoin Sodium 300 mg 04/15/25 09:00 04/15/25 09:09 Phenytoin Sodium 100 Mg Extended Release Cap PO 300 mg QAM SAKINA Administration Rosuvastatin Calcium 5 mg 04/15/25 09:00 04/15/25 09:09 Rosuvastatin 5 Mg Tablet PO 5 mg DAILY SAKINA Administration Radiology Results: ITS Impressions Chest X-Ray 04/14/25 13:53 Impression: 1: Blunting left lateral costophrenic recess may represent a small effusion or pleural thickening. Chest CTA 04/14/25 18:38 IMPRESSION: No CT evidence of acute pulmonary embolus. No acute process detected in the chest. Ascending thoracic aortic ectasia. Cardiomegaly with left ventricular hypertrophy. Small pericardial effusion. Labs Labs: Laboratory Results - last 24 hr 04/14/25 04/14/25 04/14/25 13:51 17:29 20:14 WBC 6.3 RBC 4.68 Hgb 15.0 Hct 47.3 MCV 101.1 H MCH 32.1 MCHC 31.7 L RDW 13.3 Plt Count 317 MPV 9.6 Immature Gran % (Auto) 0.2 Neut % (Auto) 70.9 Lymph % (Auto) 17.9 L [place] % (Auto) 9.2 H Eos % (Auto) 1.0 Baso % (Auto) 0.8 Lymph # (Auto) 1.13 [place] # (Auto) 0.6 Eos # (Auto) 0.1 Baso # (Auto) 0.1 Abs Immat Gran (auto) 0.01 Absolute Neuts (auto) 4.5 Absolute Nucleated RBC 0.000 Nucleated RBC % 0.0 PT 13.1 INR 1.0 APTT 25.5 Sodium 138 Potassium 4.2 Chloride 100 Carbon Dioxide 26 Anion Gap 12 BUN 11 Creatinine 0.55 L Estim Creat Clear Calc 77 Estimated GFR > 60 Glucose 131 H Calcium 9.2 Magnesium Total Bilirubin 0.5 AST 34 ALT 36 Alkaline Phosphatase 123 Troponin I 0.440 H* 0.753 H* D 0.661 H* Total Protein 7.2 Albumin 4.4 Phenytoin 12 04/14/25 04/15/25 22:32 05:57 WBC 7.6 RBC 4.05 L Hgb 13.1 L Hct 40.5 L MCV 100.0 MCH 32.3 MCHC 32.3 RDW 13.2 Plt Count 262 MPV 9.6 Immature Gran % (Auto) 0.1 Neut % (Auto) 62.3 Lymph % (Auto) 25.0 [place] % (Auto) 12.0 H Eos % (Auto) 0.3 Baso % (Auto) 0.3 Lymph # (Auto) 1.89 [place] # (Auto) 0.9 H Eos # (Auto) 0.0 Baso # (Auto) 0.0 Abs Immat Gran (auto) 0.01 Absolute Neuts (auto) 4.7 Absolute Nucleated RBC 0.000 Nucleated RBC % 0.0 PT INR APTT 58.4 H 53.3 H Sodium 133 L Potassium 4.2 Chloride 100 Carbon Dioxide 28 Anion Gap 5 BUN 10 Creatinine 0.50 L Estim Creat Clear Calc 85 Estimated GFR > 60 Glucose 99 Calcium 9.4 Magnesium 2.1 Total Bilirubin AST ALT Alkaline Phosphatase Troponin I Total Protein Albumin Phenytoin
--- NOTE | 2025-04-15 12:17 | IVDEFINITY ---
Prior to administration of IV Definity the patient was educated on the risks and benefits of the imaging enhancing agent including potential adverse side effects. The patient verbalized understanding. Allergies were verified. No exclusion criteria were identified and at least one of the following inclusion criteria were met: 1) physician request, 2) patient technically difficult to image (per the [place] [employer]chocardi[employer] guidelines of two or more segments not discernable within the apical view), or 3) questionable left ventricular function. ?
--- NOTE | 2025-04-15 12:31 | PM.CNCAR ---
Assessment and Plan Assessment and plan (1) Non-ST elevation myocardial infarction (NSTEMI): Code(s): I21.4 - Non-ST elevation (NSTEMI) myocardial infarction Status: Acute Assessment and Plan: Patient has troponin elevation and symptoms of acute onset of dyspnea with exertion. He has periods of this in the past but yesterday was worse. This may represent an atypical presentation for a non ST-elevation myocardial infarction. Also may simply be related to demand ischemia from underlying severe COPD/emphysema. With that said however he has multitude of risk factors and coronary calcifications noted on CT scan. He remains on heparin drip which will be continued. Will add aspirin 81 mg p.o. daily. Will increase his rosuvastatin to 10 mg daily. Beta-ann will be avoided at this point and due to his severe underlying lung disease but could potentially be added in the future depending on the risk/benefit. Echocardiogram is ordered and will be reviewed. Ischemic evaluation is certainly warranted. His initial preference is to treat conservatively and perform a stress test but would be amenable to coronary angiogram if needed. Obviously if his echocardiogram shows significant concern then will pursue a coronary angiogram. Will keep NPO after midnight regardless for stress test versus catheterization (2) Thoracic aortic aneurysm, without rupture, unspecified: Qualifiers: Thoracic aorta location: ascending aorta Qualified Code(s): I71.21 - Aneurysm of the ascending aorta, without rupture Code(s): I71.20 - Thoracic aortic aneurysm, without rupture, unspecified Status: Acute Assessment and Plan: [id number]. Optimize blood pressure control (3) Essential (primary) hypertension: Code(s): I10 - Essential (primary) hypertension Status: Acute Assessment and Plan: Continue lisinopril (4) Hyperlipidemia: Code(s): E78.5 - Hyperlipidemia, unspecified Status: Acute Assessment and Plan: Will increase statin (5) Cigarette nicotine dependence in remission: Code(s): F17.211 - Nicotine dependence, cigarettes, in remission Status: Acute Assessment and Plan: Stopped (6) COPD (chronic obstructive pulmonary disease) with emphysema: Qualifiers: Emphysema type: unspecified Qualified Code(s): J43.9 - Emphysema, unspecified Code(s): J43.9 - Emphysema, unspecified Status: Acute Assessment and Plan: Severe emphysema. Does not follow with pulmonology. Will have pulmonology consult History of Present Illness History of Present Illness Consult date/time: 04/15/25 12:31 Requesting physician: Mikie Levine MD Consult reason: Other (Non-STEMI) Reason For Visit: NSTEMI,COPD Narrative: Date of service 04/15/2025 Reason consultation: Non-STEMI Requesting provider: Dr. Levine History patient is a 79-year-old male who does not have a known cardiac history but does have a multitude of cardiac risk factors including tobacco use history, hypertension, hyperlipidemia, severe emphysema who presents to the hospital because of acute onset of worsening shortness of breath. He states that he has intermittent spells of dyspnea that occurs randomly. Yesterday however his episode of dyspnea did not stop and persisted for over 15 minutes. He states that he usually can breathe his way through it be yesterday he could not and therefore EMS was called. O2 sats reportedly were in the 90% range on 3 L. he denies any chest pain. No paroxysmal nocturnal dyspnea, orthopnea, syncope, presyncope, edema or palpitations. EKG showed some PVCs but no acute ST T wave abnormalities. Initial workup showed elevated troponin at 0.44 which peaked at 0.753 and is now 0.661. Wants to go home and not having any chest pain at this point. Review of Systems Review of Systems: All systems reviewed & are unremarkable except as noted in HPI and below Constitutional: Constitutional: Denies body ache(s) Eyes: Eyes: Denies blurry vision ENT: Reports Normal hearing present Cardiovascular: Cardiovascular: Denies chest pain Respiratory: Respiratory: Reports dyspnea Gastrointestinal: Gastrointestinal: Denies abdominal pain Genitourinary: Genitourinary: Denies hematuria Musculoskeletal: Musculoskeletal: Denies back pain Integumentary/Breasts: Skin/Breast: Denies dry skin Neurologic: Denies Abnormal speech present Psychiatric: Psychiatric: Denies behavioral changes Endocrine: Endocrine: Denies excessive sweating Hematologic/Lymphatic: Hematologic/Lymphatic: Denies easy bleeding Allergic/Immunologic: Allergic/Immunologic: Denies GI upset with certain foods PMFSH Past Medical History Medical History (Updated 04/15/25 @ 12:38 by Jr Crocker MD) Protein-calorie malnutrition, mild Cigarette nicotine dependence in remission Thoracic aortic aneurysm, without rupture, unspecified Atherosclerotic heart disease of [place] coronary artery without angina pectoris Personal history of colonic polyps Epilepsy COPD (chronic obstructive pulmonary disease) with emphysema Essential (primary) hypertension Family History Family History Mother Dementia Father Heart disease Myocardial infarction Social History Social History Smoking packs per day: 1 Smoking cigarettes per day: 20.0 Years smoked: 50 Smoking pack-years: 50.00 Smoking status: Former smoker Alcohol intake: current Drinks per week: 21 Substance use: never Substance use type: does not use Do You Feel Safe in your Home?: Yes Lack of Transportation: No Lack of Food: Never True Current Housing: I Have Housing Concerned About Future Housing: No Difficulty Paying Gas/Electric Bills: No Difficulty Paying for Meds: No Currently Unemployed: No Education: Master's Degree or Higher Difficulty w/ Childcare or Family Care: No Living arrangements: with family Occupation/Education: retired Gender identity (if verbalized by the patient): Male Sexual Orientation (if Verbalized by the Patient): Straight or Heterosexual Spiritual care concerns: No Meds Home Medications and Allergies Home Medications ?Medication ?Instructions ?Recorded ?Confirmed ?Type vit C 250 mg-vit E 90 mg-zinc 40 1 tablet PO BID 04/27/23 04/14/25 History mg-copper 1 [id number] capsule (PreserVision AREDS-2) lisinopril 40 mg tablet 40 mg PO DAILY #100 tabs 01/05/25 04/14/25 Rx rosuvastatin 5 mg tablet 5 mg PO DAILY #100 tabs 04/08/25 04/14/25 Rx phenytoin sodium extended 100 mg 300 mg PO BID 04/14/25 04/14/25 History capsule Allergies Allergy/AdvReac Type Severity Reaction Status Date / Time No Known Allergies Allergy Verified 11/11/24 13:05 Vital Signs Vital Signs - 24 hr 04/14/25 13:00 04/14/25 13:20 04/14/25 13:21 Temperature Pulse Rate 109 H 105 H Respiratory Rate 24 H Blood Pressure 121/89 Pulse Oximetry 96 96 Oxygen Delivery Nasal Cannula Nasal Cannula Oxygen Flow Rate 3 3 Fraction of Inspired Oxygen 04/14/25 14:00 04/14/25 15:41 04/14/25 15:45 Temperature Pulse Rate 118 H 104 H 118 H Respiratory Rate 22 H 22 H 21 H Blood Pressure 120/82 125/77 Pulse Oximetry 91 92 Oxygen Delivery Oxygen Flow Rate Fraction of Inspired Oxygen 04/14/25 16:32 04/14/25 16:56 04/14/25 17:26 Temperature 36.6 C 36.6 C Pulse Rate 116 H 113 H 118 H Respiratory Rate 28 H 20 18 Blood Pressure 116/70 116/70 134/66 Pulse Oximetry 92 91 95 Oxygen Delivery Oxygen Flow Rate Fraction of Inspired Oxygen 04/14/25 17:30 04/14/25 18:00 04/14/25 20:00 Temperature 36.6 C Pulse Rate 107 H 102 H Respiratory Rate 18 Blood Pressure 132/73 Pulse Oximetry 95 94 Oxygen Delivery Nasal Cannula Oxygen Flow Rate 3 Fraction of Inspired Oxygen 04/14/25 20:00 04/14/25 20:00 04/14/25 20:06 Temperature Pulse Rate 101 H 101 H 100 Respiratory Rate 20 20 Blood Pressure Pulse Oximetry 91 Oxygen Delivery Nasal Cannula Oxygen Flow Rate 3 Fraction of Inspired Oxygen 32 04/14/25 20:08 04/14/25 21:47 04/14/25 23:59 Temperature 36.4 C Pulse Rate 100 104 H 105 H Respiratory Rate 20 18 Blood Pressure 110/66 Pulse Oximetry 91 95 Oxygen Delivery Nasal Cannula Oxygen Flow Rate 3 Fraction of Inspired Oxygen 32 04/15/25 00:00 04/15/25 00:00 04/15/25 01:53 Temperature Pulse Rate 91 91 87 Respiratory Rate 18 20 Blood Pressure Pulse Oximetry 95 Oxygen Delivery Nasal Cannula Oxygen Flow Rate 3 Fraction of Inspired Oxygen 32 04/15/25 02:00 04/15/25 02:02 04/15/25 04:00 Temperature Pulse Rate 86 90 76 Respiratory Rate 20 20 Blood Pressure Pulse Oximetry 95 Oxygen Delivery Nasal Cannula Oxygen Flow Rate 3 Fraction of Inspired Oxygen 32 04/15/25 04:00 04/15/25 04:00 04/15/25 06:00 Temperature 36.5 C Pulse Rate 76 84 77 Respiratory Rate 18 Blood Pressure 147/99 H Pulse Oximetry 91 Oxygen Delivery Oxygen Flow Rate Fraction of Inspired Oxygen 04/15/25 07:56 04/15/25 08:00 04/15/25 08:00 Temperature 36.6 C Pulse Rate 82 78 Respiratory Rate 20 Blood Pressure 127/83 Pulse Oximetry 96 89 L Oxygen Delivery Nasal Cannula Oxygen Flow Rate 1 Fraction of Inspired Oxygen 32 04/15/25 08:09 04/15/25 08:09 04/15/25 08:19 Temperature Pulse Rate 77 77 78 Respiratory Rate 20 20 20 Blood Pressure Pulse Oximetry 96 Oxygen Delivery Nasal Cannula Oxygen Flow Rate 3 Fraction of Inspired Oxygen 04/15/25 09:00 04/15/25 10:00 04/15/25 11:53 Temperature 36.7 C Pulse Rate 85 82 Respiratory Rate 20 Blood Pressure 128/71 Pulse Oximetry 90 97 Oxygen Delivery Oxygen Flow Rate 2 Fraction of Inspired Oxygen 04/15/25 12:00 Temperature Pulse Rate 81 Respiratory Rate Blood Pressure Pulse Oximetry Oxygen Delivery Oxygen Flow Rate Fraction of Inspired Oxygen Exam Narrative: Alert oriented appears stated age Const: General: no acute distress and uncomfortable HENMT: Ears: TM's normal bilaterally Face/Nose/Sinus: Normal nares present Eyes: General: appearance normal, both eyes and all related structures Sclera: sclerae normal Neck: Neck: supple and no JVD Chest: Other: No reproducible chest wall pain with radiation Resp: Auscultation: diminished lung sounds Other: Markedly diminished breath sounds bilaterally. Cardio: Rate: regular rate Rhythm: regular rhythm Heart sounds: no murmurs GI: Inspection: non-distended GI Palp: Yes Soft to palpation Skin: General skin exam: normal color and no rashes or lesions noted Neuro: Speech: normal speech Sensory Exam: normal sensation Extrem: General: normal to inspection and no edema Psych: Mental Status: mental status grossly normal Affect: normal affect Results Labs and Meds 04/15/25 05:57 04/15/25 05:57 Lab results: Cardiac Enzymes 04/14/25 04/14/25 04/14/25 Range/Units 13:51 17:29 20:14 AST 34 (17-59) U/L Troponin I 0.440 H* 0.753 H* D 0.661 H* (0.000-0.034) ng/mL Coagulation 04/14/25 04/14/25 04/15/25 Range/Units 13:51 22:32 05:57 PT 13.1 (11.1-14.7) Seconds APTT 25.5 58.4 H 53.3 H (22.3-36.8) Seconds CBC 04/14/25 04/15/25 Range/Units 13:51 05:57 WBC 6.3 7.6 (4.5-10.0) K/mm3 RBC 4.68 4.05 L (4.6-6.20) M/mm3 Hgb 15.0 13.1 L (14.0-18.0) g/dL Hct 47.3 40.5 L (42.0-52.0) % Plt Count 317 262 (150-375) k/mm3 Lymph # (Auto) 1.13 1.89 (0.9-3.2) K/mm3 [place] # (Auto) 0.6 0.9 H (0.1-0.6) K/mm3 Eos # (Auto) 0.1 0.0 (0-0.3) K/mm3 Baso # (Auto) 0.1 0.0 (0.0-0.1) K/mm3 Comprehensive Metabolic Panel 04/14/25 04/15/25 Range/Units 13:51 05:57 Sodium 138 133 L (137-145) mmol/L Potassium 4.2 4.2 (3.4-5.0) mmol/L Chloride 100 100 (98-107) mmol/L Carbon Dioxide 26 28 (22-30) mmol/L BUN 11 10 (9-20) mg/dL Creatinine 0.55 L 0.50 L (0.7-1.3) mg/dL Glucose 131 H 99 (65-110) mg/dL Calcium 9.2 9.4 (8.4-10.2) mg/dL AST 34 (17-59) U/L ALT 36 (6-50) U/L Alkaline Phosphatase 123 (38-126) U/L Total Protein 7.2 (6.3-8.2) g/dL Albumin 4.4 (3.5-5.1) g/dL Intake and Output 04/14/25 04/15/25 04/15/25 23:59 07:59 15:59 Intake Total 52 57.6 Output Total 400 600 Balance -348 -542.4 Intake: IV 52 57.6 Heparin Sod/D5w 100 Units/ml 25 52 57.6 ,000 units In 250 ml @ 1,000 UNITS/HR 10 mls/hr IV CONT . Q24H [facility] Rx#:[id number] Output: Urine 400 600 Other: Intake, Other Source NPO Patient Weight 04/15/25 23:59 Weight 58.3 kg EKG personally reviewed and independently interpreted showing normal sinus rhythm incomplete right bundle-branch block, PVC. Abnormal ECG
[2025-04-15 13:42] LABS: Partial Thromboplastin Time 33.1 Seconds (22.3-36.8)
[2025-04-15] MEDS: HEPARIN SOD/D5W 100 UNITS/ML 25,000 UNITS/250 ML BAG 12 UNITS IV CONT (14:42)
--- NOTE | 2025-04-15 19:49 | ECHO_ITS ---
Patient Info Name: Darion Polanco Age: 79 years : 1945 Gender: Male Ht: 66 in Wt: 128 lbs BSA: 1.64 m2 HR: 77 bpm BP: 147 / 99 mmHg Heart Rhythm: Sinus Rhythm Technical Quality: Fair Exam Date: 04/15/2025 10:30 AM Patient Status: I Admit Date: 04/15/2025 Exam Type: CA echo dop color flow w con Complete two-dimensional, color flow and Doppler transthoracic echocardiogram is performed with contrast to opacify the left ventricle and to improve the deliniation of the left ventricle endocardial borders. Staff Referring Physician: Krystyna Galeas PAC Barrel Plater: Jaz Angel Attending Provider: Estefany Siegel MD Contrast/Agitated Saline Contrast/Ag. Saline: Definity Amount: 2.00 ml Administered By: Jaz Angel Existing IV Access: Yes IV Access Condition: patent with no signs of infiltration Summary 1. Left ventricular chamber dimension is normal. 2. Left ventricular systolic function is normal, estimated at 60-65. 3. There is mildly increased left ventricular wall thickness. 4. The left ventricular diastolic function is grade I diastolic dysfunction. 5. Left atrial chamber dimension is mildly enlarged. 6. The mitral valve has thickened leaflets. 7. There is mild mitral valve regurgitation. 8. There is mild tricuspid valve regurgitation. 9. The aortic root size at the sinus of Valsalva is mildly dilated. 10. The prox ascending aorta size is dilated. Left Ventricle Left ventricular chamber dimension is normal. Left ventricular systolic function is normal, estimated at 60-65. There is mildly increased left ventricular wall thickness. The left ventricular diastolic function is grade I diastolic dysfunction. Right Ventricle Right ventricular chamber dimension is normal. Right ventricular systolic function is normal. Left Atria Left atrial chamber dimension is mildly enlarged. Right Atria Right atrial chamber dimension is normal. Atrial Septum Intact interatrial septum visualized by color flow imaging. Aortic Valve The aortic valve is trileaflet. There is mild aortic valve sclerosis. There is no aortic valve stenosis. There is trace aortic valve regurgitation. Pulmonic Valve The pulmonic valve is normal. There is no pulmonic valve stenosis. There is trace pulmonic regurgitation. Mitral Valve The mitral valve has thickened leaflets. There is no mitral valve stenosis. There is mild mitral valve regurgitation. Tricuspid Valve The tricuspid valve leaflets are normal. There is no significant tricuspid valve stenosis. There is mild tricuspid valve regurgitation. No pulmonary hypertension, estimated pulmonary arterial systolic pressure is 33 mmHg. Pericardium/Pleural The pericardium appears normal. There is trivial pericardial effusion. Inferior Vena Cava Normal inferior vena cava with >50% collapse upon inspiration consistent with normal right atrial pressure, 10 mmHg. Aorta The aortic root size at the sinus of Valsalva is mildly dilated. The prox ascending aorta size is dilated. Left Ventricular Outflow Tract Name Value Normal LVOT 2D LVOT Diameter 2.1 cm LVOT Doppler LVOT Peak Velocity 86 cm/s LVOT Peak Gradient 3 mmHg LVOT Mean Gradient 2 mmHg LVOT VTI 15 cm LVOT VTI/AV VTI Ratio 0.7 LVOT Stroke Volume 52 ml LVOT CO 3.9 l/min LVOT CI 2.4 l/min/m2 Pulmonic Valve Name Value Normal PV Doppler PV Peak Velocity 89 cm/s PV Peak Gradient 3 mmHg Mitral Valve Name Value Normal MV Diastolic Function MV E Peak Velocity 54 cm/s MV A Peak Velocity 68 cm/s MV E/A 0.8 MV Decel Time (PW) 228 ms MV Annular TDI MV E/e' (Septal) 9.0 MV E/e' (Lateral) 6.1 MV E/e' (Average) 7.6 Tricuspid Valve Name Value Normal TV Regurgitation Doppler TR Peak Velocity 242 cm/s TR Peak Gradient 23 mmHg Estimated PAP/RSVP RA Pressure 10 mmHg <=5 PA Systolic Pressure 33 mmHg <36 RV Systolic Pressure 33 mmHg <36 TV Annular TDI TV Lateral Shellie s' Velocity 12.0 cm/s >=9.5 Aortic Valve Name Value Normal AV Doppler AV Peak Velocity 126 cm/s AV Peak Gradient 6 mmHg AV Mean Gradient 4 mmHg AV VTI 22 cm AV Area (Cont Eq VTI) 2.3 cm2 >=3.0 AV Area (Cont Eq Clif) 2.4 cm2 AV DI (Clif) 0.69 AV Regurgitation 2D LVOT Area 3.4 cm2 Ventricles Name Value Normal LV Dimensions 2D/MM IVS Diastolic Thickness (2D) 1.0 cm 0.6-1.0 LVID Diastole (2D) 3.8 cm 4.2-5.8 LVIW Diastolic Thickness (2D) 1.1 cm 0.6-1.0 LVID Systole (2D) 2.7 cm 2.5-4.0 LVOT Diameter 2.1 cm LV Mass (2D Cubed) 125.18 g 88.00-224.00 LV Mass Index (2D Cubed) 76 g/m2 49-115 Relative Wall Thickness (2D) 0.56 <=0.42 LV Fractional Shortening/Ejection Fraction 2D/MM LV Fractional Shortening (2D) 28 % 25-43 LV EF (2D Teichholz) 55 % LV Diastolic Volume (4C MOD) 103 ml LV EF (4C MOD) 57 % LV Diastolic Volume (2C MOD) 77 ml LV EF (2C MOD) 52 % LV Diastolic Volume (BP MOD) 91 ml 62-150 LV Diastolic Volume Index (BP MOD) 55 ml/m2 34-74 LV Systolic Volume (BP MOD) 42 ml 21-61 LV Systolic Volume Index (BP MOD) 26 ml/m2 11-31 LV EF (BP MOD) 53 % 52-72 LV Diastolic Length (4C) 7.6 cm LV Systolic Length (4C) 6.9 cm LV Stroke Volume (4C MOD) 59 ml Atria Name Value Normal LA Dimensions LA Volume (4C A-L) 37 ml LA Volume (BP A-L) 40 ml RA Dimensions RA Systolic Major [place] Length (4C) 4.2 cm 2.1-2.7 RA Area (4C) 14.0 cm2 <=18.0 Report Signatures
[2025-04-15 21:05] LABS: Partial Thromboplastin Time 192.8 Seconds (22.3-36.8)
[2025-04-15] MEDS: FLUTICASONE/SALMETEROL 115-21 MCG INHALER 1 PUFF 2 PUFF INHALATION (21:29)
[2025-04-16] VITALS (9 sets, daily range): BP systolic 110–138; BP diastolic 58–77; PULSE 60–102; RESP 18–20; TEMP 36.5–36.8; O2SAT 92–95
[2025-04-16 04:39] LABS: Partial Thromboplastin Time 109.7 Seconds (22.3-36.8)
--- NOTE | 2025-04-16 07:47 | P.CDI_ITS ---
CDI Query Clarification Request BMI: 20.7 Nutritional Diagnostic Statement: Please refer to the comprehensive nutrition assessment for further information. If you agree with diagnosis of Moderate protein calorie malnutrition related to chronic loss of appetite as evidenced by intakes <75% needs <1 month; moderate muscle wasting and fat loss. Please specify severity if known: * Mild * Moderate * Severe * Other/Unknown <Michelle Bland RN - Last Filed: 04/16/25 07:47> Clarified Diagnosis Clarified Diagnosis: Severe <Mehdi Galan MD - Last Filed: 04/16/25 10:20>
[2025-04-16] MEDS: FLUTICASONE/SALMETEROL 115-21 MCG INHALER 1 PUFF 2 PUFF INHALATION (08:11)
[2025-04-16] MEDS: ASPIRIN 81 MG CHEWABLE TABLET PO (09:10)
[2025-04-16] MEDS: PHENYTOIN SODIUM 100 MG EXTENDED RELEASE CAP 300 MG PO (09:10)
--- NOTE | 2025-04-16 10:20 | PM.IMPN ---
Progress Note: A&P Assessment and Plan (1) Essential (primary) hypertension: Code(s): I10 - Essential (primary) hypertension Status: Acute (2) Atherosclerotic heart disease of [place] coronary artery without angina pectoris: Qualifiers: [place] vs. transplanted heart: [place] heart Qualified Code(s): I25.10 - Atherosclerotic heart disease of [place] coronary artery without angina pectoris Code(s): I25.10 - Atherosclerotic heart disease of [place] coronary artery without angina pectoris Status: Acute (3) Non-ST elevation myocardial infarction (NSTEMI): Code(s): I21.4 - Non-ST elevation (NSTEMI) myocardial infarction Status: Acute (4) Thoracic aortic aneurysm, without rupture, unspecified: Qualifiers: Thoracic aorta location: ascending aorta Qualified Code(s): I71.21 - Aneurysm of the ascending aorta, without rupture Code(s): I71.20 - Thoracic aortic aneurysm, without rupture, unspecified Status: Acute Plan (1) Acute respiratory failure with hypoxia: Code(s): J96.01 - Acute respiratory failure with hypoxia Status: Acute Assessment and Plan: patient has COPD history CTA was negative for pulmonary embolism. There are findings of pulmonary hypertension however. Continue bronchodilators methylprednisolone 60 mg q.6 hours IV Start Symbicort Non-ST elevation myocardial infarction (NSTEMI): Code(s): I21.4 - Non-ST elevation (NSTEMI) myocardial infarction Status: Acute Assessment and Plan: Initial troponin was 0.440, up trending with a 3 hour troponin of 0.753. EKG showed sinus rhythm no specific ST or T-wave changes Continue heparin drip started in the emergency department. Echocardiogram ordered. consult hide and skin processing worker for evaluation treatment patient may need cardiac stress test or cardiac catheterization evaluation today COPD (chronic obstructive pulmonary disease) with emphysema: Qualifiers: Emphysema type: unspecified Qualified Code(s): J43.9 - Emphysema, unspecified Code(s): J43.9 - Emphysema, unspecified Status: Acute Assessment and Plan: As above, he is not on maintenance inhalers nor does he have nebulizers a rescue inhalers at home. Outpatient pulmonology referral is prudent. Essential (primary) hypertension: Code(s): I10 - Essential (primary) hypertension Status: Acute Assessment and Plan: Blood pressures were reviewed and they have been stable. Continue lisinopril 40 mg daily and monitor closely. Epilepsy: Qualifiers: Epilepsy type: unspecified Intractability: not intractable Status epilepticus: without status epilepticus Qualified Code(s): G40.909 - Epilepsy, unspecified, not intractable, without status epilepticus Code(s): G40.909 - Epilepsy, unspecified, not intractable, without status epilepticus Status: Acute Assessment and Plan: He has not had a seizure since the . Continue phenytoin and check check level in a.m. Severe malnutrition Consulted dietitian Patient does want to continue treatment and further evaluation. Patient condition is improving, but not safe to discharge. Patient requests to leave AMA now, he does not want pursue further cardiac workup. The risks of AMA explained to the patient in present of patient's nurse, patient understand all the risks, patient wants to take all the risks with AMA Subjective Date/time seen: 04/16/25 10:20 Interval history: Saw and examined patient today in presents of patient's Patient denies chest pain, shortness breast, abdomen pain, nausea vomiting diarrhea today Patient is off oxygen Exam Narrative: GENERAL: Pleasant, frail, cachexia in no acute distress. - EYES: EOMI. Anicteric. - HENT: Moist mucous membranes. - LUNGS: Decreased breath sound bilaterally, no wheezing, rhonchi, or rales. - CARDIOVASCULAR: Regular rate and rhythm. No murmur. No JVD. - ABDOMEN: Soft, non-tender and non-distended. No palpable masses. - EXTREMITIES: No edema. Peripheral pulses 2+. Non-tender. - NEUROLOGIC: No focal neurological deficits. CN II-XII grossly intact. - PSYCHIATRIC: Awake, Alert and oriented x 3. Appropriate mood and affect. - SKIN: No rashes or lesions. Warm. - LYMPH: No cervical lymphadenopathy. Objective Data Vital Signs Vital Signs: Vital Signs - 24 hr 04/15/25 11:53 04/15/25 12:00 04/15/25 12:00 Temperature 98.1 F Pulse Rate 82 81 Respiratory Rate 20 Blood Pressure 128/71 Pulse Oximetry 97 95 Oxygen Delivery Nasal Cannula Oxygen Flow Rate 2 04/15/25 13:50 04/15/25 13:50 04/15/25 13:58 Temperature Pulse Rate 91 91 90 Respiratory Rate 20 20 20 Blood Pressure Pulse Oximetry 93 Oxygen Delivery Nasal Cannula Oxygen Flow Rate 2 04/15/25 14:00 04/15/25 15:46 04/15/25 16:00 Temperature 98.1 F Pulse Rate 97 82 Respiratory Rate 18 Blood Pressure 131/75 Pulse Oximetry 95 94 Oxygen Delivery Nasal Cannula Oxygen Flow Rate 2 04/15/25 16:00 04/15/25 18:00 04/15/25 20:00 Temperature 97.8 F Pulse Rate 92 91 86 Respiratory Rate 20 Blood Pressure 144/84 H Pulse Oximetry 91 Oxygen Delivery Oxygen Flow Rate 04/15/25 20:00 04/15/25 20:00 04/15/25 21:25 Temperature Pulse Rate 75 85 Respiratory Rate 20 Blood Pressure Pulse Oximetry 91 Oxygen Delivery Nasal Cannula Oxygen Flow Rate 2 04/15/25 22:00 04/15/25 23:53 04/16/25 00:00 Temperature 97.7 F Pulse Rate 82 75 Respiratory Rate 20 Blood Pressure 113/58 L Pulse Oximetry 93 94 Oxygen Delivery Nasal Cannula Oxygen Flow Rate 2 04/16/25 00:00 04/16/25 02:00 04/16/25 03:39 Temperature Pulse Rate 77 62 Respiratory Rate Blood Pressure Pulse Oximetry 94 Oxygen Delivery Nasal Cannula Oxygen Flow Rate 2 04/16/25 04:00 04/16/25 04:00 04/16/25 06:00 Temperature 97.7 F Pulse Rate 102 H 60 74 Respiratory Rate 20 Blood Pressure 110/72 Pulse Oximetry 95 Oxygen Delivery Oxygen Flow Rate 04/16/25 08:09 04/16/25 08:14 Temperature 98.3 F Pulse Rate 75 Respiratory Rate 18 Blood Pressure 138/77 Pulse Oximetry 93 92 Oxygen Delivery Room Air Oxygen Flow Rate Intake/Output Intake/Output: Intake & Output 04/13/25 04/14/25 04/15/25 04/16/25 23:59 23:59 23:59 23:59 Intake Total 52 951.3 65.4 Output Total 400 1100 900 Balance -348 -148.7 -834.6 Meds/Results Medications: Active Medications Generic Name Dose Route Start Last Admin Trade Name Freq PRN Reason Stop Dose Admin Acetaminophen 650 mg 04/14/25 19:49 Acetaminophen 325 Mg Tablet PO Q6H PRN Mild Pain (1-3) or Fever Aspirin 81 mg 04/15/25 08:00 04/16/25 09:10 Aspirin 81 Mg Chewable Tablet PO 81 mg DAILY@0800 SAKINA Administration Heparin Sodium (Porcine) 4,000 units 04/14/25 15:29 04/15/25 14:41 Heparin Sodium 5,000 Units/Ml Vial IV PUSH 4,000 units PRN PRN Administration aPTT less than 55 seconds Heparin Sodium (Porcine) 2,500 units 04/14/25 15:29 04/14/25 23:48 Heparin Sodium 5,000 Units/Ml Vial IV PUSH 2,500 units PRN PRN Administration aPTT 55 - 70 seconds Heparin Sodium/Dextrose 25,000 units in 250 mls @ 9 mls/hr 04/14/25 15:30 04/16/25 04:47 Heparin Sodium/D5w 100 Units/Ml IV CONT 900 units/hr .Q24H SAKINA 9 mls/hr Titration Protocol 900 UNITS/HR Levalbuterol HCl 0.63 mg 04/15/25 15:24 Levalbuterol Neb 1.25 Mg/3 Ml INHALATION Q6HRT PRN Wheezing Lisinopril 40 mg 04/15/25 09:00 04/15/25 09:09 Lisinopril 20 Mg Tablet PO 40 mg DAILY SAKINA Administration Multivitamins/Minerals 1 tablet 04/15/25 09:00 04/15/25 18:35 Opti-Gen Tab PO 1 tablet BID SAKINA Administration Phenytoin Sodium 300 mg 04/15/25 09:00 04/16/25 09:10 Phenytoin Sodium 100 Mg Extended Release Cap PO 300 mg QAM SAKINA Administration Rosuvastatin Calcium 10 mg 04/16/25 09:00 Rosuvastatin 10 Mg Tablet PO DAILY [facility] Fluticasone/Salmeterol 2 puff 04/15/25 20:00 04/16/25 08:11 Fluticasone/Salmeterol 115-21 Mcg Inhaler 1 Puff INHALATION 2 puff Q12HRT SAKINA Administration Radiology Results: ITS Impressions Chest X-Ray 04/14/25 13:53 Impression: 1: Blunting left lateral costophrenic recess may represent a small effusion or pleural thickening. Chest CTA 04/14/25 18:38 IMPRESSION: No CT evidence of acute pulmonary embolus. No acute process detected in the chest. Ascending thoracic aortic ectasia. Cardiomegaly with left ventricular hypertrophy. Small pericardial effusion. Labs Labs: Laboratory Results - last 24 hr 04/15/25 04/15/25 04/16/25 13:12 20:38 04:15 APTT 33.1 192.8 H* 109.7 H
[2025-04-16 11:10] LABS: Partial Thromboplastin Time 73.9 Seconds (22.3-36.8)
--- NOTE | 2025-04-16 11:14 | PM.DS ---
DS: Admitting Diagnosis Discharge Date 04/16/25 Admitting Diagnosis (1) Essential (primary) hypertension: Code(s): I10 - Essential (primary) hypertension Status: Acute (2) Atherosclerotic heart disease of [place] coronary artery without angina pectoris: Qualifiers: [place] vs. transplanted heart: [place] heart Qualified Code(s): I25.10 - Atherosclerotic heart disease of [place] coronary artery without angina pectoris Code(s): I25.10 - Atherosclerotic heart disease of [place] coronary artery without angina pectoris Status: Acute (3) Non-ST elevation myocardial infarction (NSTEMI): Code(s): I21.4 - Non-ST elevation (NSTEMI) myocardial infarction Status: Acute (4) Thoracic aortic aneurysm, without rupture, unspecified: Qualifiers: Thoracic aorta location: ascending aorta Qualified Code(s): I71.21 - Aneurysm of the ascending aorta, without rupture Code(s): I71.20 - Thoracic aortic aneurysm, without rupture, unspecified Status: Acute DS: Discharge Diagnosis Discharge Diagnosis (1) Essential (primary) hypertension: Code(s): I10 - Essential (primary) hypertension Status: Acute (2) Atherosclerotic heart disease of [place] coronary artery without angina pectoris: Qualifiers: [place] vs. transplanted heart: [place] heart Qualified Code(s): I25.10 - Atherosclerotic heart disease of [place] coronary artery without angina pectoris Code(s): I25.10 - Atherosclerotic heart disease of [place] coronary artery without angina pectoris Status: Acute (3) Non-ST elevation myocardial infarction (NSTEMI): Code(s): I21.4 - Non-ST elevation (NSTEMI) myocardial infarction Status: Acute (4) Thoracic aortic aneurysm, without rupture, unspecified: Qualifiers: Thoracic aorta location: ascending aorta Qualified Code(s): I71.21 - Aneurysm of the ascending aorta, without rupture Code(s): I71.20 - Thoracic aortic aneurysm, without rupture, unspecified Status: Acute DS: Summary Hospital Course Hospital Course: This is a 79-year-old male with history of tobacco abuse for which he quit smoking about 5 years ago, chronic obstructive pulmonary disease, hypertension, ascending thoracic aortic aneurysm, and epilepsy who presented to the emergency department via EMS from [facility] with complaints of shortness of breath. He is not active at baseline and is mainly an electric scooter but can stand to transfer. states that he is not very active and spends most of the day lying on the couch. He gets easily winded and the patient tells me he has ?spells? where he acutely gets short of breath which passes on its own without intervention after a period of time. He goes on to say that he is not on maintenance inhalers at home and he apparently does not have a rescue inhaler either. Today he had 1 of these spells at about 11:00 where he just could not catch his breath and EMS was summoned. There was no other information provided by the transferring facility and I do not have EMS notes available at this time. SpO2 was documented in the mid 90s on 3 L. The patient tells me that he coughs rarely and is usually nonproductive. He has not had any sick contacts to his knowledge. He also denies fever, chills, sweats, pleuritic pain, palpitations, chest pain, orthopnea, paroxysmal nocturnal dyspnea, lower extremity edema, calf pain, nausea, vomiting, dysphagia, and concerns for aspiration. In the ED: Vital signs on arrival include a temperature of 97.8, blood pressure 121/89, pulse 109, respiratory 24, SpO2 96% on 3 L. his labs were pretty unremarkable aside from a troponin of 0.440. EKG shows sinus tachycardia with first-degree AV block, frequent PVCs, and right bundle-branch block. Chest CTA was negative for pulmonary embolism and acute process. Cardiomegaly with left ventricular hypertrophy and small pericardial effusion were noted. He was given nebulizer treatment with mild benefit. He believes the oxygen placed on him per EMS has helped him the most. He was started on a heparin drip and was given aspirin 324 mg for the elevated troponin he is being admitted in this setting for close monitoring and Cardiology consultation. THE FOLLOWING MED ISSUES HAVE BEEN ADDRESSED DURING HOSPITALIZATION Acute respiratory failure with hypoxia: Code(s): J96.01 - Acute respiratory failure with hypoxia Status: Acute Assessment and Plan: patient has COPD history CTA was negative for pulmonary embolism. There are findings of pulmonary hypertension however. Continue bronchodilators methylprednisolone 60 mg q.6 hours IV Start Symbicort Non-ST elevation myocardial infarction (NSTEMI): Code(s): I21.4 - Non-ST elevation (NSTEMI) myocardial infarction Status: Acute Assessment and Plan: Initial troponin was 0.440, up trending with a 3 hour troponin of 0.753. EKG showed sinus rhythm no specific ST or T-wave changes Continue heparin drip started in the emergency department. Echocardiogram ordered. consult extracting machine operator for evaluation treatment patient may need cardiac stress test or cardiac catheterization evaluation today COPD (chronic obstructive pulmonary disease) with emphysema: Qualifiers: Emphysema type: unspecified Qualified Code(s): J43.9 - Emphysema, unspecified Code(s): J43.9 - Emphysema, unspecified Status: Acute Assessment and Plan: As above, he is not on maintenance inhalers nor does he have nebulizers a rescue inhalers at home. Outpatient pulmonology referral is prudent. Essential (primary) hypertension: Code(s): I10 - Essential (primary) hypertension Status: Acute Assessment and Plan: Blood pressures were reviewed and they have been stable. Continue lisinopril 40 mg daily and monitor closely. Epilepsy: Qualifiers: Epilepsy type: unspecified Intractability: not intractable Status epilepticus: without status epilepticus Qualified Code(s): G40.909 - Epilepsy, unspecified, not intractable, without status epilepticus Code(s): G40.909 - Epilepsy, unspecified, not intractable, without status epilepticus Status: Acute Assessment and Plan: He has not had a seizure since the . Continue phenytoin and check check level in a.m. Severe malnutrition Consulted dietitian Patient does NOT want to continue treatment and further evaluation. Patient condition is improving, but he is not safe to be discharged. Patient requests to leave AMA now, he does not want pursue further cardiac workup. The risks of AMA explained to the patient in present of patient's nurse, patient understand all the risks, patient wants to take all the risks with AMA Time Spent with Patient Time attestation: Total time spent providing and/or coordinating discharge services: Exam Narrative: GENERAL: Pleasant, frail, cachexia in no acute distress. - EYES: EOMI. Anicteric. - HENT: Moist mucous membranes. - LUNGS: Decreased breath sound bilaterally, no wheezing, rhonchi, or rales. - CARDIOVASCULAR: Regular rate and rhythm. No murmur. No JVD. - ABDOMEN: Soft, non-tender and non-distended. No palpable masses. - EXTREMITIES: No edema. Peripheral pulses 2+. Non-tender. - NEUROLOGIC: No focal neurological deficits. CN II-XII grossly intact. - PSYCHIATRIC: Awake, Alert and oriented x 3. Appropriate mood and affect. - SKIN: No rashes or lesions. Warm. - LYMPH: No cervical lymphadenopathy. DS: Data Data Completed and Pending Labs on day of discharge: Labs from last 24 hours 04/16/25 04/16/25 04/15/25 10:36 04:15 20:38 APTT 73.9 H 109.7 H 192.8 H* 04/15/25 13:12 APTT 33.1 Discharge Plan Discharge Attending physician on discharge: Mehdi Galan Consulting providers: Che Han; Geno Koch Discharging Clinician: Mehdi Galan Anticipated Discharge Date/Time: 04/16/25 11:18 Patient Disposition: Left Against Medical Advice Patient Language: [place]i Discharge Medications: Continued PreserVision AREDS-2 250-90-40-1 mg capsule 1 tablet PO BID phenytoin sodium extended 100 mg capsule 300 mg PO BID lisinopril 40 mg tablet 40 mg PO DAILY Qty: 100 1RF rosuvastatin 5 mg tablet 5 mg PO DAILY Qty: 100 1RF Date of admission: 04/15/25 10:08 Primary Care Provider: Kvng Cook Admitting Provider: Estefany Siegel Attending physician on admission: Estefany Siegel Condition: Serious
== END 2025-04-16 11:11 | disposition left against medical advice (07) | DRG 280 ==
LOC: ANHED 15:07 → ANHIMU 16:53
PROVIDERS: Internal Medicine; Nurse Practitioner Gerontology; Physician Assistant; Admitting Provider Family Medicine; Emergency Provider Emergency Medicine; PCP Family Medicine; Visit Provider Hospitalist
DX: I21.4 Non-ST elevation (NSTEMI) myocardial infarction (principal); E43 Unspecified severe protein-calorie malnutrition; J96.01 Acute respiratory failure with hypoxia; J43.9 Emphysema, unspecified; I71.20 Thoracic aortic aneurysm, without rupture, unspecified; I10 Essential (primary) hypertension; I25.10 Atherosclerotic heart disease of native coronary artery without angina pectoris; G40.909 Epilepsy, unspecified, not intractable, without status epilepticus; E78.5 Hyperlipidemia, unspecified; Z68.20 Body mass index [BMI] 20.0-20.9, adult; Z87.891 Personal history of nicotine dependence
CPT/HCPCS: 36415; 71045; 71275; 80048; 80053; 80185; 83735; 84484; 85025; 85610; 85730; 93005; 94640; 96374; 96375; 99291; A9270; C8929; G0378; J1644; J2919; Q9957; Q9967

== ENCOUNTER 2025-06-24 13:20 | Inpatient (IN) | payer MEDICARE, SELFPAY ==
[2025-06-24] VITALS (14 sets, daily range): BP systolic 100–144; BP diastolic 43–94; PULSE 56–193; RESP 18–31; TEMP 36.6–36.8; O2SAT 86–97; BMI 28.5
--- NOTE | ~2025-06-24 | XR_ITS ---
EXAMINATION: XR chest 1V portable COMPARISON: No comparisons available. HISTORY: hypoxia FINDINGS: COPD changes. Small basilar infiltrates with small left effusion. No pneumothorax. Mild cardiomegaly. Mediastinal and hilar contours are within normal limits. Bony thorax no acute abnormality. Miscellaneous: None Impression: Bilateral pneumonia Reviewed, dictated and finalized at location P. Impression: Bilateral pneumonia
--- NOTE | ~2025-06-24 | CT_ITS ---
EXAMINATION: CTA chest abdomen pelvis DATE: 06/24/2025 16:02 INDICATION: Coffee-ground emesis. Shortness of breath. TECHNIQUE: Computed tomographic angiography (CTA) of the chest, abdomen, and pelvis was performed with 100 mL Omnipaque-350 intravenous contrast. Automated exposure control and iterative reconstruction technique were employed. The dose- length product was 370.16 mGy-cm. Maximum intensity projection 3D-r econstructions of the aorta and other arteries were constructed by the technologist on a separate workstation. COMPARISON: Chest CT 04/14/2025 FINDINGS: CHEST CTA: There is severe emphysema. Motion artifact is noted. There are groundglass opacities and small airspace opacities in right lower lobe, consistent with pneumonia. There is mild atelectasis in right middle lobe and lingula. No pleural effusion. The heart size is normal. There are coronary artery calcific ations. No pericardial effusion. There is ectasia of ascending aorta measuring 4.6 cm. Aortic atherosclerosis is noted. There is no pulmonary embolus, but sensitivity is moderately decreased by motion artifact. There is severe cervical spondylosis and moderate thoracic spondylosis. There is mild chronic anterior wedging of multiple vertebral bodies. ABDOMEN AND PELVIS CTA: The liver, gallbladder, spleen, pancreas, adrenal glands, and kidneys are normal. The prostate is moderately enlarged. There is diverticulosis of the colon without evidence of diverticulitis. The appendix is normal. There are no pathologically enlarged lymph nodes. There is no ascites. There is no sign ificant stenosis of celiac axis, superior mesenteric artery, the renal arteries, or inferior mesenteric artery. There is mild chronic anterior wedging of L1 vertebral body. There is moderate lumbar spondylosis. IMPRESSION: 1. Mild right lower lobe pneumonia. 2. Severe emphysema. Reviewed, dictated and finalized at location E.
--- NOTE | 2025-06-24 13:43 | ECG_ITS ---
Test Date: 2025-06-24 13:47:31 Measurements Intervals [place] Rate: 98 P: 216 AL: 123 QRS: 84 QRSD: 105 T: 43 QT: 340 QTc: 435 Interpretive Statements SINUS RHYTHM WITH FIRST DEGREE AV BLOCK RIGHT AXIS DEVIATION LOW QRS VOLTAGE IN LIMB LEADS INCOMPLETE RIGHT BUNDLE BRANCH BLOCK DELAYED PRECORDIAL R/S TRANSITION BASELINE ARTIFACT- I, II, III, AVR, AVL, AVF, V1-V6 BORDERLINE ECG Compared to ECG 04/14/2025 13:37:50 HEART RATE HAS DECREASED Electronically Signed On 06-24-2025 13:56:20 CDT by Bro Magdaleno D.O.
--- NOTE | 2025-06-24 14:13 | ECG_ITS ---
Test Date: 2025-06-24 14:14:10 Measurements Intervals [place] Rate: 90 P: 91 MI: 239 QRS: 53 QRSD: 103 T: 49 QT: 361 QTc: 443 Interpretive Statements SINUS RHYTHM WITH FIRST DEGREE AV BLOCK INCOMPLETE RIGHT BUNDLE BRANCH BLOCK LOW QRS VOLTAGE IN LIMB LEADS BASELINE ARTIFACT- I, II, III, AVR, AVL, AVF, V1, V3-V4, V6 BORDERLINE ECG Compared to ECG 06/24/2025 13:47:31 NO SIGNIFICANT CHANGE Electronically Signed On 06-24-2025 16:07:28 CDT by Bro Magdaleno D.O.
[2025-06-24] MEDS: IPRATROPIUM 0.5 MG/ALBUTEROL SULFATE 2.5 MG (BASE) AMPUL.NEB 3 ML 12 ML INHALATION (14:28)
[2025-06-24 14:36] LABS: Fractional Inspired Oxygen 36 %; HCO3 VBG 26.4 mEq/l (24.0-30.0); Liters per Minute 4.0 LPM; PCO2 VBG 45.4 mmHg (42.0-48.0); PO2 VBG < 27.0 mmHg (35.0-45.0); pH VBG 7.383 (7.300-7.400)
[2025-06-24 14:49] LABS: Hematocrit 46.0 % (42.0-52.0); Hemoglobin 14.5 g/dL (14.0-18.0); Immature Granulocyte Percent A 0.4 % (0-0.5); Lymphocytes Absolute Auto 0.65 K/mm3 (0.9-3.2); Mean Corpuscular HGB Conc 31.5 g/dl (32-36); Mean Corpuscular Hemoglobin 31.3 pg (26-34); Mean Corpuscular Volume 99.1 fl (80-100); Nucleated Red Blood Cells Absolute Auto 0.000 K/mm3 (0.0-0.012); Nucleated Red Blood Cells Perc 0.0 % (0.0-0.2); Platelet Count Result 326 k/mm3 (150-375); Red Blood Count 4.64 M/mm3 (4.6-6.20); White Blood Count 11.6 K/mm3 (4.5-10.0)
[2025-06-24] MEDS: METOCLOPRAMIDE HCL INJ 10 MG/2 ML VIAL IV PUSH (14:53)
[2025-06-24] MEDS: PANTOPRAZOLE SODIUM IV 40 MG VIAL 80 MG IV PUSH (14:53)
[2025-06-24 15:01] LABS: INR 1.1; Prothrombin Time 13.7 Seconds (11.1-14.7)
[2025-06-24 15:03] LABS: Partial Thromboplastin Time 26.1 Seconds (22.3-36.8)
[2025-06-24 15:05] LABS: Alanine Aminotransferase 39 U/L (6-50); Albumin Level 4.6 g/dL (3.5-5.1); Alkaline Phosphatase 162 U/L (38-126); Anion Gap 9 mmol/L (4-12); Aspartate Amino Transferase 35 U/L (17-59); Bilirubin,Total 0.5 mg/dL (0.2-1.3); Blood Urea Nitrogen 13 mg/dL (9-20); Calcium 9.2 mg/dL (8.4-10.2); Carbon Dioxide 29 mmol/L (22-30); Chloride 98 mmol/L (98-107); Estimated CRCL calculation 72 ml/min; Estimated Glomerular Filt Rate > 60; Glucose 135 mg/dL (65-110); Lipase 148 U/L (23-300); Magnesium 1.9 mg/dL (1.6-2.3); Potassium 4.4 mmol/L (3.4-5.0); Sodium 136 mmol/L (137-145); Total Protein 7.9 g/dL (6.3-8.2)
--- NOTE | 2025-06-24 15:07 | ED.GENADULT ---
HPI - General Adult General Chief complaint: Nausea/Vomiting/Diarrhea Stated complaint: Coffee ground emesis x1 Time Seen by Provider: 06/24/25 14:08 History of Present Illness HPI narrative: This is a 79-year-old male presenting for coffee-ground emesis. Patient says that he felt nauseous had episode of vomiting the [facility]. The staff there felt that it was coffee-grounds. He was then sent to the ED for evaluation. Patient is denying any current nausea abdominal pain or history of significant GI bleeds. He appears short of breath but says that is baseline for him due to his COPD. Patient drinks 2 small glasses of whiskey per night. He denies any history of alcohol withdrawal. He denies history of liver cirrhosis. Related Data Home Medications ?Medication ?Instructions ?Recorded ?Confirmed ?Last Taken ?Type vit C 250 mg-vit E 90 mg-zinc 40 1 tablet PO BID 04/27/23 05/26/25 04/14/25 History mg-copper 1 [id number] capsule (PreserVision AREDS-2) phenytoin sodium extended 100 mg 300 mg PO BID 04/14/25 05/26/25 04/14/25 History capsule Allergies Allergy/AdvReac Type Severity Reaction Status Date / Time No Known Allergies Allergy Verified 06/24/25 13:46 [facility] Past Medical History Medical History Protein-calorie malnutrition, mild Cigarette nicotine dependence in remission Thoracic aortic aneurysm, without rupture, unspecified Atherosclerotic heart disease of [place] coronary artery without angina pectoris Personal history of colonic polyps Epilepsy COPD (chronic obstructive pulmonary disease) with emphysema Essential (primary) hypertension Family History Family History Mother Dementia Father Heart disease Myocardial infarction Social History Social History (Updated 05/26/25 @ 11:10 by Shannon Dodge MA) Smoking packs per day: 1 Smoking cigarettes per day: 20.0 Years smoked: 50 Smoking pack-years: 50.00 Smoking status: Former smoker Alcohol intake: current Drinks per week: 21 Substance use: never Substance use type: does not use Do You Feel Safe in your Home?: Yes Lack of Transportation: No Lack of Food: Never True Current Housing: I Have Housing Concerned About Future Housing: No Difficulty Paying Gas/Electric Bills: No Difficulty Paying for Meds: No Currently Unemployed: No Education: Master's Degree or Higher Difficulty w/ Childcare or Family Care: No Living arrangements: with family Occupation/Education: retired Gender identity (if verbalized by the patient): Male Sexual Orientation (if Verbalized by the Patient): Straight or Heterosexual Spiritual care concerns: No Exam Narrative: APPEARANCE: Patient cannot sit still in the bed, he is a poor historian. His says this behavior is normal for him Head: atraumatic. EYES: EOMI, NOSE: Atraumatic NECK: Trachea midline RESPIRATORY: Tachypneic, decreased air entry in all chris CARDIOVASCULAR: Tachycardic, no peripheral edema ABDOMINAL: Non-distended, soft nontender no guarding or rebound MUSCULOSKELETAl: No obvious deformities NEURO: Alert. Moving 4/4 extremities SKIN:: Warm, dry. Normal color PSYCHIATRIC: Normal affect Course Vital Signs Vital signs: Vital Signs Temperature 98.1 F 06/24/25 13:44 Pulse Rate 193 H 06/24/25 13:44 Respiratory Rate 20 06/24/25 13:44 Blood Pressure 143/93 H 06/24/25 13:44 Pulse Oximetry 86 L 06/24/25 13:44 Oxygen Delivery Room Air 06/24/25 13:44 Temperature 98.1 F 06/24/25 13:44 Pulse Rate 113 H 06/24/25 18:54 Respiratory Rate 21 H 06/24/25 18:54 Blood Pressure 101/80 06/24/25 18:54 Pulse Oximetry 92 06/24/25 18:54 Oxygen Delivery Nasal Cannula 06/24/25 14:54 Oxygen Flow Rate 4 06/24/25 14:54 Medical Decision Making [facility] Narrative Medical decision making narrative: -Course: 79-year-old male presenting for an episode of coffee-ground emesis. Arrival he is hypoxic and placed on 4 L nasal cannula. The patient appears older than his stated age/chronically unwell. He cannot sit still on the bed and he cannot really tell me why although his says his behavior is normal for him. She attributes it to an antiseizure medication. A phenytoin level has been added. On lung exam he has decreased air entry in all chris. Given an hour long breathing treatment. CT chest abdomen pelvis shows pneumonia in the right lower lobe. Patient started on antibiotics for CAP. Patient has not had any vomiting while in the emergency department. His hemoglobin is 14.5. BUN is not elevated indicating upper GI bleed. Continue to monitor. While the patient's pulse was 93 on arrival with blood pressure 140/93 during his stay he became tachycardic into the 130s and blood pressures became soft 101/80. Patient is a daily drinker and given his odd behavior he was given Valium for possible anxiety/alcohol withdrawal. This improved his heart rate mildly. He was then given a 30 cc kg bolus which improved his heart rate into the 110s. Patient will be admitted the hospital for further management his hypoxic respiratory failure secondary to pneumonia. -DDX includes but is not limited to: COPD, pneumonia, sepsis, dehydration, UTI, alcohol withdrawal, tardive dyskinesia, phenytoin overdose -Co-morbidities complicating care: COPD, daily alcohol use -Social determinants of health: Patient drinks 2 small glasses of whiskey per night. Is unsure of how many oz. Vital Signs Vital Signs: Vital Signs Temperature 98.1 F 06/24/25 13:44 Pulse Rate 193 H 06/24/25 13:44 Respiratory Rate 20 06/24/25 13:44 Blood Pressure 143/93 H 06/24/25 13:44 Pulse Oximetry 86 L 06/24/25 13:44 Oxygen Delivery Room Air 06/24/25 13:44 Temperature 98.1 F 06/24/25 13:44 Pulse Rate 113 H 06/24/25 18:54 Respiratory Rate 21 H 06/24/25 18:54 Blood Pressure 101/80 06/24/25 18:54 Pulse Oximetry 92 06/24/25 18:54 Oxygen Delivery Nasal Cannula 06/24/25 14:54 Oxygen Flow Rate 4 06/24/25 14:54 Lab Data 06/24/25 14:32 06/24/25 14:32 Labs: Lab Results 06/24/25 06/24/25 06/24/25 Range/Units 14:32 14:36 14:49 WBC 11.6 H (4.5-10.0) K/mm3 RBC 4.64 (4.6-6.20) M/mm3 Hgb 14.5 (14.0-18.0) g/dL Hct 46.0 (42.0-52.0) % MCV 99.1 (80-100) fl MCH 31.3 (26-34) pg MCHC 31.5 L (32-36) g/dl RDW 12.4 (11.5-14.5) % Plt Count 326 (150-375) k/mm3 MPV 9.7 (7.4-10.4) fl Immature Gran % (Auto) 0.4 (0-0.5) % Neut % (Auto) 86.1 H (45.5-73.1) % Lymph % (Auto) 5.6 L (18.3-44.2) % [place] % (Auto) 7.3 (2.6-8.5) % Eos % (Auto) 0.3 (0-4.4) % Baso % (Auto) 0.3 (0.2-1.2) % Lymph # (Auto) 0.65 L (0.9-3.2) K/mm3 [place] # (Auto) 0.9 H (0.1-0.6) K/mm3 Eos # (Auto) 0.0 (0-0.3) K/mm3 Baso # (Auto) 0.0 (0.0-0.1) K/mm3 Abs Immat Gran (auto) 0.05 H (0.00-0.031) K/mm3 Absolute Neuts (auto) 10.0 H (1.3-6.7) K/mm3 Absolute Nucleated RBC 0.000 (0.0-0.012) K/mm3 Nucleated RBC % 0.0 (0.0-0.2) % PT 13.7 (11.1-14.7) Seconds INR 1.1 APTT 26.1 (22.3-36.8) Seconds Sodium 136 L (137-145) mmol/L Potassium 4.4 (3.4-5.0) mmol/L Chloride 98 (98-107) mmol/L Carbon Dioxide 29 (22-30) mmol/L Anion Gap 9 (4-12) mmol/L BUN 13 (9-20) mg/dL Creatinine 0.58 L (0.7-1.3) mg/dL Estim Creat Clear Calc 72 ml/min Estimated GFR > 60 (59 - ) Glucose 135 H (65-110) mg/dL POC Capillary Glucose 118 H (65-105) mg/dl Lactic Acid 1.9 (0.7-2.0) mmol/L Calcium 9.2 (8.4-10.2) mg/dL Phosphorus 3.7 (2.5-4.5) mg/dL Magnesium 1.9 (1.6-2.3) mg/dL Total Bilirubin 0.5 (0.2-1.3) mg/dL AST 35 (17-59) U/L ALT 39 (6-50) U/L Alkaline Phosphatase 162 H (38-126) U/L Troponin I < 0.012 (0.000-0.034) ng/mL NT-Pro-B Natriuret Pep 69 (19.9-100) pg/mL Total Protein 7.9 (6.3-8.2) g/dL Albumin 4.6 (3.5-5.1) g/dL Lipase 148 (23-300) U/L Urine Color (Yellow) Urine Appearance (Clear) Urine pH (5.0-9.0) Ur Specific [place] (1.001-1.035) Urine Protein (Negative) mg/dL Urine Glucose (UA) (Negative) mg/dL Urine Ketones (Negative) mg/dL Ur Blood (Man) (Negative) Urine Nitrate (Negative) Urine Bilirubin (Negative) Urine Urobilinogen (<2.0) mg/dL Leukocyte Esterase Rfl (Negative) JODY/UL Urine Opiates Screen (Negative) Urine Methadone Screen (Negative) Ur Barbiturates Screen (Negative) Ur Phencyclidine Scrn (Negative) Ur Amphetamine Screen (Negative) U Benzodiazepines Scrn (Negative) Urine Cocaine Screen (Negative) U Cannabinoids Screen (Negative) Ethyl Alcohol < 10 (<10) mg/dL Influenza A (RT-PCR) (Negative) Influenza B (RT-PCR) (Negative) RSV (RT-PCR) (Negative) SARS-CoV-2 RNA (RT-PCR) (Negative) Blood Type B Positive Antibody Screen Negative 06/24/25 06/24/25 06/24/25 Range/Units 15:12 16:45 17:44 WBC (4.5-10.0) K/mm3 RBC (4.6-6.20) M/mm3 Hgb (14.0-18.0) g/dL Hct (42.0-52.0) % MCV (80-100) fl MCH (26-34) pg MCHC (32-36) g/dl RDW (11.5-14.5) % Plt Count (150-375) k/mm3 MPV (7.4-10.4) fl Immature Gran % (Auto) (0-0.5) % Neut % (Auto) (45.5-73.1) % Lymph % (Auto) (18.3-44.2) % [place] % (Auto) (2.6-8.5) % Eos % (Auto) (0-4.4) % Baso % (Auto) (0.2-1.2) % Lymph # (Auto) (0.9-3.2) K/mm3 [place] # (Auto) (0.1-0.6) K/mm3 Eos # (Auto) (0-0.3) K/mm3 Baso # (Auto) (0.0-0.1) K/mm3 Abs Immat Gran (auto) (0.00-0.031) K/mm3 Absolute Neuts (auto) (1.3-6.7) K/mm3 Absolute Nucleated RBC (0.0-0.012) K/mm3 Nucleated RBC % (0.0-0.2) % PT (11.1-14.7) Seconds INR APTT (22.3-36.8) Seconds Sodium (137-145) mmol/L Potassium (3.4-5.0) mmol/L Chloride (98-107) mmol/L Carbon Dioxide (22-30) mmol/L Anion Gap (4-12) mmol/L BUN (9-20) mg/dL Creatinine (0.7-1.3) mg/dL Estim Creat Clear Calc ml/min Estimated GFR (59 - ) Glucose (65-110) mg/dL POC Capillary Glucose (65-105) mg/dl Lactic Acid (0.7-2.0) mmol/L Calcium (8.4-10.2) mg/dL Phosphorus (2.5-4.5) mg/dL Magnesium (1.6-2.3) mg/dL Total Bilirubin (0.2-1.3) mg/dL AST (17-59) U/L ALT (6-50) U/L Alkaline Phosphatase (38-126) U/L Troponin I 0.024 D (0.000-0.034) ng/mL NT-Pro-B Natriuret Pep (19.9-100) pg/mL Total Protein (6.3-8.2) g/dL Albumin (3.5-5.1) g/dL Lipase (23-300) U/L Urine Color Yellow (Yellow) Urine Appearance Clear (Clear) Urine pH 5.5 (5.0-9.0) Ur Specific [place] > 1.045 H (1.001-1.035) Urine Protein Negative (Negative) mg/dL Urine Glucose (UA) Negative (Negative) mg/dL Urine Ketones 1+ H (Negative) mg/dL Ur Blood (Man) Negative (Negative) Urine Nitrate Negative (Negative) Urine Bilirubin Negative (Negative) Urine Urobilinogen 0.2 (<2.0) mg/dL Leukocyte Esterase Rfl Negative (Negative) JODY/UL Urine Opiates Screen Negative (Negative) Urine Methadone Screen Negative (Negative) Ur Barbiturates Screen Negative (Negative) Ur Phencyclidine Scrn Negative (Negative) Ur Amphetamine Screen Negative (Negative) U Benzodiazepines Scrn Negative (Negative) Urine Cocaine Screen Negative (Negative) U Cannabinoids Screen Negative (Negative) Ethyl Alcohol (<10) mg/dL Influenza A (RT-PCR) Negative (Negative) Influenza B (RT-PCR) Negative (Negative) RSV (RT-PCR) Negative (Negative) SARS-CoV-2 RNA (RT-PCR) Negative (Negative) Blood Type Antibody Screen ABG Data ABG results: 06/24/25 14:32 VBG pH 7.383 VBG pCO2 45.4 VBG pO2 < 27.0 L VBG HCO3 26.4 O2 Delivery Device Nasal cannula O2 Liters/Min 4.0 FiO2 36 Critical Care Time Critical Care Time Critical Care Time: Yes Total Critical Care Time: 35 Discharge Plan Discharge Clinical Impression: Community acquired pneumonia, Alcohol dependence, daily use, COPD (chronic obstructive pulmonary disease), Vomiting Patient Disposition: Home Condition: Stable Instructions: Antibiotic Form Patient Language: Prydeinig Prescriptions: No Action escitalopram oxalate 10 mg tablet 10 mg PO DAILY Qty: 90 0RF PreserVision AREDS-2 250-90-40-1 mg capsule 1 tablet PO BID phenytoin sodium extended 100 mg capsule 300 mg PO BID rosuvastatin 5 mg tablet 5 mg PO DAILY Qty: 100 1RF mirtazapine 30 mg tablet 30 mg PO QHS Qty: 90 0RF lisinopril 40 mg tablet 40 mg PO DAILY Qty: 100 1RF Follow-up/Referrals: Kvng Cook MD [Primary Care Provider, [facility]]
--- NOTE | 2025-06-24 15:08 | PC.NURSE ---
Pt provided with urinal for urine sample
[2025-06-24 15:16] LABS: NT Pro B Type Natriuretic Pept 69 pg/mL (19.9-100); Troponin I < 0.012 ng/mL (0.000-0.034)
[2025-06-24 16:18] LABS: Influenza A QL RT-PCR Negative (Negative); Influenza B QL RT-PCR Negative (Negative); RSV RNA, RT-PCR Negative (Negative); SARS-CoV-2 RNA PCR Negative (Negative)
--- NOTE | 2025-06-24 16:31 | ECG_ITS ---
Test Date: 2025-06-24 16:44:32 Measurements Intervals George Rate: 133 P: 109 DE: 198 QRS: 90 QRSD: 104 T: 50 QT: 330 QTc: 491 Interpretive Statements SINUS TACHYCARDIA INCOMPLETE RIGHT BUNDLE BRANCH BLOCK DELAYED PRECORDIAL R/S TRANSITION BASELINE ARTIFACT- I, II, III, AVR, AVL, AVF, V1-V2 ABNORMAL ECG Compared to ECG 06/24/2025 14:14:10 HEART RATE HAS INCREASED Electronically Signed On 06-24-2025 16:50:58 CDT by Bro Magdaleno D.O.
[2025-06-24 16:53] LABS: Add Urine Microscopic? NO; Appearance Urine Clear (Clear); Glucose Urine UA Negative (Negative); Leukocyte Esterase Ur Negative LEU/UL (Negative); Nitrate Urine Negative (Negative); Specific Grav Ur > 1.045 (1.001-1.035)
[2025-06-24] MEDS: diazePAM INJ (*CRX) 10 MG/2 ML SYRINGE 5 MG IV PUSH (17:09)
[2025-06-24] MEDS: cefTRIAXone 1 GM in SODIUM CHLORIDE 0.9% IV 50 ML 100 ML IVPB (17:10)
[2025-06-24 17:15] LABS: Cannabinoid Screen Urine Negative (Negative)
[2025-06-24] MEDS: LACTATED RINGERS 1,000 ML 999 ML IV CONT (17:52)
[2025-06-24] MEDS: DOXYCYCLINE IV 100 MG in SODIUM CHLORIDE 0.9% IV 100 ML IVPB (17:54)
[2025-06-24 18:20] LABS: Troponin I 0.024 ng/mL (0.000-0.034)
[2025-06-24] MEDS: LACTATED RINGERS 700 ML 999 ML IV CONT (18:40)
--- NOTE | 2025-06-24 19:49 | PM.IMHP ---
H&P: HPI History of Present Illness Date/Time: 06/24/25 19:49 Chief Complaint: Nausea vomiting diarrhea. Narrative: This is a 79-year-old male patient that resides at [facility]. The patient has a history of COPD, seizures, and anxiety. The patient presented to the emergency room with complaint of coffee-ground emesis. The patient had an episode of vomiting at the assisted living today. The staff noted that it was coffee-ground. Upon arrival to the emergency department the patient denied any current nausea or abdominal pain. He denies having any history of GI bleed or being on any blood thinners. The patient stated that he is typically short of breath with his COPD and he does not chronically wear oxygen. The is at the bedside answering questions. His white count was 9.6. His H&H was normal at 14.5 and 46.0 but repeat was 11.8 and 36.3. Total was 136. Last sodium level was 133 on 04/15/2025. Chest x-ray was read as . Chest abdomen pelvis CTA was read as mild right lower lobe pneumonia. Severe emphysema. EKG was read as sinus tachycardia incomplete right bundle-branch block heart rate 133. Troponins were negative x2. Urine had 1+ ketone. Viral serology was negative. The patient was started on ceftriaxone, doxycycline, Reglan Protonix, Valium, lactated Ringer's and DuoNeb. The patient was placed on oxygen at 4 L per nasal cannula and he was satting 90-92%. He was afebrile. His heart rate did come down to 108. His blood pressure was 101/80. The patient is being admitted to inpatient status on the date of service of 06/24/2025. Review of Systems Review of Systems: All systems reviewed & are unremarkable except as noted in HPI and below Constitutional: Constitutional: Reports as per HPI and Reports no additional constitutional complaints Eyes: Eyes: Reports as per HPI and Reports no additional eye complaints ENT: Reports no additional ear, nose, mouth, and throat complaints and Reports Normal hearing present Cardiovascular: Cardiovascular: Reports no additional cardiovascular complaints Respiratory: Respiratory: Reports as per HPI and Reports no additional respiratory complaints Gastrointestinal: Gastrointestinal: Reports as per HPI and Reports no additional gastrointestinal complaints Musculoskeletal: Musculoskeletal: Reports no additional musculoskeletal complaints Integumentary/Breasts: Skin/Breast: Reports system reviewed and no additional complaints, except as docu Neurologic: Reports no additional neurologic complaints and Reports Normal hearing present Psychiatric: Psychiatric: Reports no additional psychiatric complaints and Reports as per HPI Endocrine: Endocrine: Reports no additional endocrine complaints Hematologic/Lymphatic: Hematologic/Lymphatic: Reports no additional hematologic/lymphatic complaints Allergic/Immunologic: Allergic/Immunologic: Reports no additional allergic/immunologic complaints [facility] Past Medical History Medical History (Updated 06/24/25 @ 22:14 by Melissa De Jesus APRN) Depression with anxiety Seizure Protein-calorie malnutrition, mild Cigarette nicotine dependence in remission Thoracic aortic aneurysm, without rupture, unspecified Atherosclerotic heart disease of [place] coronary artery without angina pectoris Personal history of colonic polyps Epilepsy COPD (chronic obstructive pulmonary disease) with emphysema Essential (primary) hypertension Surgical History Surgical History (Updated 06/24/25 @ 19:58 by Melissa De Jesus APRN) H/O colonoscopy with polypectomy History of cataract surgery History of surgery on arm Family History Family History Mother Dementia Father Heart disease Myocardial infarction Social History Social History (Updated 06/24/25 @ 21:59 by Melissa De Jesus APRN) Social History: he is . his svitlana is the poa. He has 1 child . he lives at [facility]. He uses an electric wheelchair. The patient resides in the assisted living however his does not live with him. code status dnr Smoking packs per day: 1 Smoking cigarettes per day: 20.0 Years smoked: 50 Smoking pack-years: 50.00 Smoking status: Former smoker Tobacco type: cigarettes Alcohol intake: current Drinks per week: 14 Substance use: never Substance use type: does not use Do You Feel Safe in your Home?: Yes Lack of Transportation: No Lack of Food: Never True Current Housing: I Have Housing Concerned About Future Housing: No Difficulty Paying Gas/Electric Bills: No Difficulty Paying for Meds: No Currently Unemployed: No Education: Master's Degree or Higher Difficulty w/ Childcare or Family Care: No Living arrangements: with family Occupation/Education: retired Gender identity (if verbalized by the patient): Male Sexual Orientation (if Verbalized by the Patient): Straight or Heterosexual Spiritual care concerns: No Meds Home Medications and Allergies Home Medications ?Medication ?Instructions ?Recorded ?Confirmed ?Type vit C 250 mg-vit E 90 mg-zinc 40 1 tablet PO BID 04/27/23 06/24/25 History mg-copper 1 kg-etrnon-rivrdd capsule (PreserVision AREDS-2) rosuvastatin 5 mg tablet 5 mg PO DAILY #100 tabs 04/08/25 06/24/25 Rx phenytoin sodium extended 100 mg 300 mg PO BID 04/14/25 06/24/25 History capsule escitalopram oxalate 10 mg tablet 10 mg PO DAILY #90 tabs 05/26/25 06/24/25 Rx mirtazapine 30 mg tablet 30 mg PO QHS #90 tabs 06/03/25 06/24/25 Rx lisinopril 40 mg tablet 40 mg PO DAILY #100 tabs 06/16/25 06/24/25 Rx Allergies Allergy/AdvReac Type Severity Reaction Status Date / Time No Known Allergies Allergy Verified 06/24/25 13:46 Vital Signs Vital Signs - 24 hr 06/24/25 13:44 06/24/25 13:49 06/24/25 14:31 Temperature 98.1 F Pulse Rate 193 H 94 Respiratory Rate 20 21 H Blood Pressure 143/93 H Pulse Oximetry 86 L 92 Oxygen Delivery Room Air Nasal Cannula Oxygen Flow Rate 4 06/24/25 14:54 06/24/25 15:18 06/24/25 16:53 Temperature Pulse Rate 98 128 H 131 H Respiratory Rate 22 H 21 H 20 Blood Pressure 132/93 H 133/92 H 139/72 Pulse Oximetry 97 97 94 Oxygen Delivery Nasal Cannula Oxygen Flow Rate 4 06/24/25 17:25 06/24/25 18:54 06/24/25 19:23 Temperature 97.9 F Pulse Rate 123 H 113 H 115 H Respiratory Rate 22 H 21 H 18 Blood Pressure 101/59 L 101/80 112/94 H Pulse Oximetry 96 92 95 Oxygen Delivery Oxygen Flow Rate Exam Const: General: cooperative, healthy appearing, comfortable, awake and Physically active Orientation/consciousness: oriented to person, oriented to place, oriented to time and patient oriented x3 Limitations: no limitations HENMT: Head: normal to inspection, No palpable skull fracture present, normocephalic, atraumatic and abrasion Eyes: General: appearance normal, both eyes and all related structures Alignment and Position: alignment normal Periorbital: periorbital findings normal Eyelids: eyelids normal EOM: EOMs intact bilaterally Neck: Neck: normal visual inspection, full ROM, no lymphadenopathy, trachea midline and supple Chest: Chest palpation & inspection: normal inspection of the chest Resp: Effort & Inspection: normal respiratory effort Auscultation: abnormal I/E ratio and diminished lung sounds bilateral and diffuse Percussion: percussion normal Cardio: Palpation: normal PMI Rate: tachycardic Rhythm: regular rhythm Heart sounds: S1 normal heart sound present and S2 normal heart sound present Peripheral pulses: Peripheral pulses 2+ throughout GI: Inspection: normal to inspection Auscultation: normal bowel sounds Rectal Exam: deferred Back/Spine/Pelvis: Back: no CVA tenderness Cervical Spine: cervical ROM normal Skin: General skin exam: normal color Lesions: no lesions Rashes: no rashes Trauma: no lacerations or abrasions Wounds: no wounds Hair: normal Nails: normal Neuro: General: oriented to person, oriented to place, oriented to time and patient oriented x3 Cranial nerves: Yes Equal, round and reactive pupils present and Yes Normal hearing present Cognition (Neuro): normal cognition Speech: normal speech Motor exam (neuro): 5/5 motor strength present throughout Sensory Exam: normal sensation Extrem: General: normal to inspection Right upper extremity: normal to inspection and shoulder/upper arm Left upper extremity: normal to inspection and shoulder/upper arm Right lower extremity: normal to inspection Left lower extremity: normal to inspection Psych: Appearance: grossly normal Mental Status: mental status grossly normal Speech and movement: Normal speech and movement present Affect: normal affect Attitude: cooperative Thought process: Normal thought process present Thought content: Yes Normal thought content present Insight: Good insight present (Psych) Judgement: Good judgement present (Psych) H&P: Results Labs Labs: Short CBC 06/24/25 Range/Units 14:32 WBC 11.6 H (4.5-10.0) K/mm3 Hgb 14.5 (14.0-18.0) g/dL Hct 46.0 (42.0-52.0) % Plt Count 326 (150-375) k/mm3 BMP 06/24/25 14:32 Sodium 136 L Potassium 4.4 Chloride 98 Carbon Dioxide 29 BUN 13 Creatinine 0.58 L Glucose 135 H Calcium 9.2 Cardiac Enzymes 06/24/25 06/24/25 Range/Units 14:32 17:44 Troponin I < 0.012 0.024 D (0.000-0.034) ng/mL Liver Function 06/24/25 Range/Units 14:32 Total Bilirubin 0.5 (0.2-1.3) mg/dL AST 35 (17-59) U/L ALT 39 (6-50) U/L Alkaline Phosphatase 162 H (38-126) U/L Albumin 4.6 (3.5-5.1) g/dL Urine 06/24/25 Range/Units 16:45 Urine Color Yellow (Yellow) Urine Appearance Clear (Clear) Urine pH 5.5 (5.0-9.0) Ur Specific [place] > 1.045 H (1.001-1.035) Urine Protein Negative (Negative) mg/dL Urine Glucose (UA) Negative (Negative) mg/dL ECG Interpretation: Test Date: 2025-06-24 16:44:32 Measurements Intervals Dickinson Rate: 133 P: 109 KS: 198 QRS: 90 QRSD: 104 T: 50 QT: 330 QTc: 491 Interpretive Statements SINUS TACHYCARDIA INCOMPLETE RIGHT BUNDLE BRANCH BLOCK DELAYED PRECORDIAL R/S TRANSITION BASELINE ARTIFACT- I, II, III, AVR, AVL, AVF, V1-V2 ABNORMAL ECG Compared to ECG 06/24/2025 14:14:10 HEART RATE HAS INCREASED Electronically Signed On 06-24-2025 16:50:58 CDT by Bro Magdaleno D.O. Imaging Chest x-ray: Radiologist's impression: Impressions Chest X-Ray 06/24/25 14:35 Impression: Bilateral pneumonia Chest/Abdomen/Pelvis CTA 06/24/25 16:07 IMPRESSION: 1. Mild right lower lobe pneumonia. 2. Severe emphysema. Assessment and Plan Assessment and plan (1) Community acquired pneumonia: Code(s): J18.9 - Pneumonia, unspecified organism Status: Acute Assessment and Plan: -continue with Rocephin and doxycycline. -chest x-ray shows mild right lower lobe pneumonia. -continue with DuoNebs. -blood and sputum cultures are pending. -the patient has mild hypoxia at this time and was placed on oxygen at 4 L per nasal cannula. Please wean off when feasible. (2) COPD (chronic obstructive pulmonary disease) with emphysema: Code(s): J43.9 - Emphysema, unspecified Status: Acute Assessment and Plan: -patient's lung hcris are greatly diminished at this time. His respirations are 32. -continue with dual nebs. -keep O2 saturations above 88- 90%. The patient does not wear oxygen at home but was placed on oxygen in the emergency room. Please wean off of O2 when feasible. -continue Solu-Medrol. -chest x-ray shows severe emphysema. -the patient has a history of COPD and is not on any chronic inhalers. -patient may need a pulmonary evaluation in a peripheral location. (3) Vomiting: Code(s): R11.10 - Vomiting, unspecified Status: Acute Assessment and Plan: -it was noted that the patient had coffee-ground emesis. -the patient is not on any blood thinners. -GI has been consulted. -Pepcid has been ordered. -serial H&Hs. -daily CBC. -check stool for occult blood. -his initial H&H is 14.5 and 46.0. Repeat H&H dropped and 11.8 and 36.3. Continue with Zofran for now. Patient's QTC is 491. - (4) Hyperlipidemia: Code(s): E78.5 - Hyperlipidemia, unspecified Status: Acute Assessment and Plan: -continue with rosuvastatin and monitor liver enzymes (5) Essential (primary) hypertension: Code(s): I10 - Essential (primary) hypertension Status: Acute Assessment and Plan: -continue with lisinopril if blood pressure allows. -patient's current blood pressure is 108/80. -monitor daily BMPs (6) Seizure: Code(s): R56.9 - Unspecified convulsions Status: Acute Assessment and Plan: -seizure precautions -continue with phenytoin -phenytoin level was 12. (7) Tachycardia: Code(s): R00.0 - Tachycardia, unspecified Status: Acute Assessment and Plan: -could be related to neb treatments -could be related to his anxiety -could be related to the disease process. -monitor for signs and symptoms of sepsis as his heart rate is fast and his blood pressure soft. (8) Depression with anxiety: Code(s): F41.8 - Other specified anxiety disorders Status: Acute Assessment and Plan: -the patient was given Valium in the emergency room which appeared to help -continue with escitalopram (9) Alcohol dependence, daily use: Code(s): F10.20 - Alcohol dependence, uncomplicated Status: Acute Assessment and Plan: -monitor for signs and symptoms of alcohol withdrawal. Quality VTE Prophylaxis VTE prophylaxis: mechanical ordered
[2025-06-24] MEDS: IPRATROPIUM 0.5 MG/ALBUTEROL SULFATE 2.5 MG (BASE) AMPUL.NEB 3 ML INHALATION (20:08)
[2025-06-24 20:53] LABS: Hematocrit 36.3 % (42.0-52.0); Hemoglobin 11.8 g/dL (14.0-18.0)
--- NOTE | 2025-06-24 21:14 | PC.NURSE ---
Remeron home med given to pt by his . ERP made aware.
--- NOTE | 2025-06-24 22:16 | ADMGEN ---
This patient, Darion Polanco, was admitted to IMU Room 206-01. Patient/family oriented to hospital policies and general routines including ID bracelet, bed and alarms, visiting hours, pain management, procedures, bathroom and other care routines, personal items, smoking policy, room service/diet, and visiting hours. Information on how to activate the Rapid Response Team has been discussed. Patient/Family are encouraged to report perceived risks to care and to ask questions if they do not understand what they are told or what they should do.
[2025-06-24] MEDS: FAMOTIDINE 20 MG/2 ML VIAL IV PUSH (23:26)
[2025-06-25] VITALS (10 sets, daily range): BP systolic 101–140; BP diastolic 60–92; PULSE 83–102; RESP 16–20; TEMP 36.7–36.9; O2SAT 91–100
[2025-06-25] MEDS: IPRATROPIUM 0.5 MG/ALBUTEROL SULFATE 2.5 MG (BASE) AMPUL.NEB 3 ML INHALATION (01:27)
[2025-06-25] MEDS: DOXYCYCLINE IV 100 MG in SODIUM CHLORIDE 0.9% IV 100 ML IVPB (04:58)
--- NOTE | 2025-06-25 07:43 | PCRCNOTE ---
Pt refused his breathing tx and pt refused to wear his oxygen. RT stated the importance to wearing his oxygen pt still refused. RN aware.
--- NOTE | 2025-06-25 09:17 | P.CONGI_ITS ---
Assessment and Plan Assessment and plan (1) Vomiting: Qualifiers: Vomiting type: bilious vomiting Nausea presence: with nausea Qualified Code(s): R11.14 - Bilious vomiting Code(s): R11.10 - Vomiting, unspecified Status: Acute (2) Acid reflux: Qualifiers: Esophagitis presence: esophagitis presence not specified Qualified Code(s): K21.9 - Gastro-esophageal reflux disease without esophagitis Code(s): K21.9 - Gastro-esophageal reflux disease without esophagitis Status: Acute (3) Coffee ground emesis: Code(s): K92.0 - Hematemesis Status: Acute (4) Community acquired pneumonia: Qualifiers: Laterality: unspecified laterality Qualified Code(s): J18.9 - Pneumonia, unspecified organism Code(s): J18.9 - Pneumonia, unspecified organism Status: Acute (5) COPD (chronic obstructive pulmonary disease): Qualifiers: COPD type: unspecified COPD Qualified Code(s): J44.9 - Chronic obstructive pulmonary disease, unspecified Code(s): J44.9 - Chronic obstructive pulmonary disease, unspecified Status: Acute (6) Normocytic anemia: Code(s): D64.9 - Anemia, unspecified Status: Acute Plan 1. Coffee-ground emesis/reflux/pneumonia/normocytic anemia: Patient has never had an EGD. Last colonoscopy 04/18/2019 at which time he had tubular adenomatous colon polyps removed and a 5 year repeat was recommended. Prior to admission patient had been taking famotidine 20 mg b.i.d. and reflux was controlled. He does admit to a decreased appetite and a 50 lb weight loss over the past few years which the thinks is related to his chronic lung disease and other comorbidities. GI was consulted for coffee-ground emesis but patient declines having any coffee-ground emesis. He states that he did have an episode of nausea and vomiting after drinking coffee and states that his emesis was brown like the coffee he consumed. Patient and his are both asking that the patient be discharged with antibiotics to treat pneumonia as they state ?he lives in a very nice place and wants to go back there for treatment?. H&H decreased since admission with hemoglobin 15-->12 and Hct 46-->36, MCV 99, platelets 326 and INR 1.1. Lipase normal at 148 ETOH level < 10. We discussed possible need for EGD informed the patient that he is overdue for a screening colonoscopy. * Patient agrees to follow-up in the GI office outpatient at which time we can further evaluate his possible need for endoscopic evaluation * Decrease in H&H may be secondary to IV fluids/dilutional as patient denies any signs of active GI bleeding such as hematemesis, coffee-ground emesis, hematochezia or melena * Patient will likely be discharged later today per his request * Upon discharge continue famotidine 20 mg b.i.d. Thank you very much for allowing me to share in the care of this very nice patient. This report may have been done utilizing a voice recognition system. Attempts have been made to correct errors. However, there may be uncorrected grammatical, spelling, and recognition errors present. GI Consult Note Consult date/time: 06/25/25 09:17 HPI: Darion Polanco is a 79 year old male with past medical surgical history of COPD, HTN, alcohol dependence, ascending thoracic aortic aneurysm and epilepsy who currently resides at [facility]. He presented to the ER yesterday with complaints of coffee-ground emesis and SOB. He was admitted for pneumonia. GI has been consulted for coffee-ground emesis. Patient was seen with his Chelle throughout the entire visit. Patient recently admitted to [facility] at the end of March for acute respiratory failure with hypoxia and non-STEMI. At time of today's visit the patient and his states that he does not want to remain hospitalized and feels that they can treat his pneumonia outpatient patient states that prior to his admission had an episode of nausea and vomiting after drinking a cup of coffee but denies any coffee-ground emesis. He is on famotidine 20 mg b.i.d. and denies any reflux symptoms. He does admit to a decreased appetite and has lost around 50 lb over the past few years. He has constipation and typically only has 1 bowel movement weekly and is taking stool softeners as needed. Patient was able to eat breakfast which he tolerated well. He denies any abdominal pain, nausea, vomiting, bloating, odynophagia, dysphagia, regurgitation, early satiety, diarrhea, hematochezia, or melena. Patient has 1- 2 alcoholic beverages in the evening a few times a week. Quit smoking 5-6 years ago and denies any marijuana use. Family history negative for CRC or IBD. ENDOSCOPY HISTORY: EGD: Patient has never had an EGD COLONOSCOPY: 04/18/[address] Jensen for CRC screening Findings: In the cecum, sessile polyp 6 mm x 7 mm was seen. The polyp was non bleeding. The polyp was benign in appearance. Polyp excised and retrieved In the mid sigmoid colon, a sessile polyp 3 mm x 3 mm seen. The polyp was non bleeding. The polyp was benign in appearance. Polyp was excised and retrieved. A few medium diverticula were present that were not actively bleeding In the rectum, a few medium-sized uncomplicated internal hemorrhoids seen that were not bleeding 5 year repeat colonoscopy recommended Bx results: Cecal polyp, endoscopic polypectomy: Tubular adenoma Sigmoid colon polyp, endoscopic polypectomy: Tubular adenoma LABS AND STOOL STUDIES: Labs 06/24/2025: Sodium 136, potassium 4.4, BUN 13, creatinine 0.58, GFR >60, calcium 9.2, magnesium 1.9 WBC 12, Hgb 12, Hct 36, MCV 99, platelets 326, INR 1.1 Total bilirubin 0.5, AST 35, ALT 39, Alkaline Phos 162, albumin 4.6, lipase 148 ETOH < 10 IMAGING: CTA chest/abd/pelvis w/contrast 06/24/2025: IMPRESSION: 1. Mild right lower lobe pneumonia. 2. Severe emphysema. Chest Xray 06/24/2025: Impression: Bilateral pneumonia Review of Systems 2 Constitutional: Constitutional: Reports as per HPI ENT: Reports as per HPI Cardiovascular: Cardiovascular: Reports as per HPI, Denies chest pain and Reports dyspnea Respiratory: Respiratory: Denies cough and Reports dyspnea Gastrointestinal: Gastrointestinal: Reports as per HPI Musculoskeletal: Musculoskeletal: Reports as per HPI Integumentary/Breasts: Skin/Breast: Reports as per HPI Psychiatric: Psychiatric: Reports as per HPI Endocrine: Endocrine: Reports no additional endocrine complaints Hematologic/Lymphatic: Hematologic/Lymphatic: Reports no additional hematologic/lymphatic complaints [facility] Past Medical History Medical History (Updated 06/25/25 @ 12:43 by Mary Carmen Vick APRN) Depression with anxiety Seizure Protein-calorie malnutrition, mild Cigarette nicotine dependence in remission Thoracic aortic aneurysm, without rupture, unspecified Atherosclerotic heart disease of [place] coronary artery without angina pectoris Personal history of colonic polyps Epilepsy COPD (chronic obstructive pulmonary disease) with emphysema Essential (primary) hypertension Surgical History Surgical History (Updated 06/24/25 @ 19:58 by Melissa De Jesus APRN) H/O colonoscopy with polypectomy History of cataract surgery History of surgery on arm Family History Family History Mother Dementia Father Heart disease Myocardial infarction Social History Social History (Updated 06/24/25 @ 21:59 by Melissa De Jesus APRN) Social History: he is . his chelle is the poa. He has 1 child . [facility] He uses an electric wheelchair. The patient resides in the assisted living however his does not live with him. code status dnr Smoking packs per day: 1 Smoking cigarettes per day: 20.0 Years smoked: 50 Smoking pack-years: 50.00 Smoking status: Former smoker Tobacco type: cigarettes Alcohol intake: current Drinks per week: 14 Substance use: never Substance use type: does not use Do You Feel Safe in your Home?: Yes Lack of Transportation: No Lack of Food: Never True Current Housing: I Have Housing Concerned About Future Housing: No Difficulty Paying Gas/Electric Bills: No Difficulty Paying for Meds: No Currently Unemployed: No Education: Master's Degree or Higher Difficulty w/ Childcare or Family Care: No Living arrangements: with family Occupation/Education: retired Gender identity (if verbalized by the patient): Male Sexual Orientation (if Verbalized by the Patient): Straight or Heterosexual Spiritual care concerns: No Meds Home Medications and Allergies Home Medications ?Medication ?Instructions ?Recorded ?Confirmed ?Type vit C 250 mg-vit E 90 mg-zinc 40 1 tablet PO BID 04/2706/24/25 History mg-copper 1 [id number] capsule (PreserVision AREDS-2) rosuvastatin 5 mg tablet 5 mg PO DAILY #100 tabs 03/2406/24/25 Rx phenytoin sodium extended 100 mg 300 mg PO BID 5 06/24/25 History capsule escitalopram oxalate 10 mg tablet 10 mg PO DAILY #90 t abs 05/26/25 06/24/25 Rx mirtazapine 30 mg tablet 30 mg PO QHS #90 tabs 06/24/25 Rx lisinopril 40 mg tablet 40 mg PO DAILY #100 tabs 06/24/25 Rx amoxicillin 875 mg-potassium 1 tablet PO Q12H 7 days # 14 tabs 06/25/25 Rx clavulanate 125 mg tablet doxycycline hyclate 100 mg tablet 100 mg PO BID 7 days #14 tabs 06/25/25 Rx pantoprazole 40 mg tablet,delayed 40 mg PO HS 14 days #14 tabs 06/25/25 Rx release (Protonix) Allergies Allergy/AdvReac Type Severity Reaction Status Date / Time No Known Allergies Allergy Verified 06/24/25 13:46 Vital Signs Vital Signs - 24 hr 06/24/25 13:44 06/24/25 13:49 06/24/25 14:31 Temperature 98.1 F Pulse Rate 193 H 94 Respiratory Rate 20 21 H Blood Pressure 143/93 H Pulse Oximetry 86 L 92 Oxygen Delivery Room Air Nasal Cannula Oxygen Flow Rate 4 Fraction of Inspired Oxygen 06/24/25 14:54 06/24/25 15:18 06/24/25 16:53 Temperature Pulse Rate 98 128 H 131 H Respiratory Rate 22 H 21 H 20 Blood Pressure 132/93 H 133/92 H 139/72 Pulse Oximetry 97 97 94 Oxygen Delivery Nasal Cannula Oxygen Flow Rate 4 Fraction of Inspired Oxygen 06/24/25 17:25 06/24/25 18:54 06/24/25 19:23 Temperature 97.9 F Pulse Rate 123 H 113 H 115 H Respiratory Rate 22 H 21 H 18 Blood Pressure 101/59 L 101/80 112/94 H Pulse Oximetry 96 92 95 Oxygen Delivery Oxygen Flow Rate Fraction of Inspired Oxygen 06/24/25 20:11 06/24/25 22:00 06/24/25 22:15 Temperature 98.2 F Pulse Rate 108 H 106 H 56 L Respiratory Rate 31 H 22 H Blood Pressure 144/43 H Pulse Oximetry 92 Oxygen Delivery Oxygen Flow Rate Fraction of Inspired Oxygen 06/24/25 22:45 06/24/25 23:40 06/25/25 00:00 Temperature 98.3 F Pulse Rate 100 100 102 H Respiratory Rate 20 20 Blood Pressure 100/52 L Pulse Oximetry 95 95 Oxygen Delivery Nasal Cannula Oxygen Flow Rate 4 Fraction of Inspired Oxygen 06/25/25 01:29 06/25/25 01:32 06/25/25 01:40 Temperature Pulse Rate 95 95 95 Respiratory Rate 20 20 20 Blood Pressure Pulse Oximetry 96 Oxygen Delivery Nasal Cannula Oxygen Flow Rate 3 Fraction of Inspired Oxygen 32 06/25/25 02:00 06/25/25 04:00 06/25/25 04:00 Temperature Pulse Rate 90 90 88 Respiratory Rate 20 Blood Pressure Pulse Oximetry 96 Oxygen Delivery Nasal Cannula Oxygen Flow Rate 4 Fraction of Inspired Oxygen 06/25/25 04:00 06/25/25 05:51 06/25/25 08:00 Temperature 98.4 F 98.0 F Pulse Rate 85 83 85 Respiratory Rate 18 16 Blood Pressure 101/60 107/71 Pulse Oximetry 100 100 Oxygen Delivery Oxygen Flow Rate Fraction of Inspired Oxygen Exam 2 Const: General: cooperative, healthy appearing, comfortable, no acute distress and well developed Orientation/consciousness: oriented to person, oriented to place, oriented to time and patient oriented x3 HENMT: Head: normal to inspection, normocephalic and atraumatic Mouth: Yes Normal oral and palatal mucosa present and Yes moist mucous membranes Eyes: General: appearance normal, both eyes and all related structures C onjunctivae: conjunctivae normal Sclera: sclerae normal Pupils: Equal, round and reactive pupils present Neck: Neck: normal visual inspection Chest: Chest palpation & inspection: normal inspection of the chest Resp: Effort & Inspection: normal respiratory effort and able to speak in complete sentences Auscultation: diminished lung sounds Cardio: Jugular venous distension: no JVD Rate: regular rate Rhythm: r egular rhythm Heart sounds: S1 normal heart sound present and S2 normal heart sound present GI: Inspection: normal to inspection GI Palp: Yes Soft to palpation, No Tenderness to palpation present (GI), No Guarding due to palpation present (GI) and Yes No hepatosplenomegaly present Auscultation: normal bowel sounds R ectal Exam: deferred Skin: General skin exam: normal color and no rashes or lesions noted Neuro: General: oriented to person, oriented to place, oriented to time and patient oriented x3 Cranial nerves: Yes Equal, round and reactive pupils present Speech: normal speech Extrem: General: normal to inspection and no clubbing, cyanosis or edema Psych: Appearance: grossly normal and well kempt Affect: normal affect Results Labs 06/24/25 20:48 06/24/25 14:32 Labs: Short CBC 06/24/25 06/24/25 Range/Units 14:32 20:48 WBC 11.6 H (4.5-10.0) K/mm3 Hgb 14.5 11.8 L (14.0-18.0) g/dL Hct 46.0 36.3 L (42.0-52.0) % Plt Count 326 (150-375) k/mm3 BMP 06/24/25 14:32 Sodium 136 L Potassium 4.4 Chloride 98 Carbon Dioxide 29 BUN 13 Creatinine 0.58 L Glucose 135 H Calcium 9.2 Cardiac Enzymes 06/24/25 06/24/25 Range/Units 14:32 17:44 Troponin I < 0.012 0.024 D (0.000-0.034) ng/mL Liver Function 06/24/25 Range/Units 14:32 Total Bilirubin 0.5 (0.2-1.3) mg/dL AST 35 (17-59) U/L ALT 39 (6-50) U/L Alkaline Phosphatase 162 H (38-126) U/L Albumin 4.6 (3.5-5.1) g/dL Urine 06/24/25 Range/Units 16:45 Urine Color Yellow (Yellow) Urine Appearance Clear (Clear) Urine pH 5.5 (5.0-9.0) Ur Specific Felt > 1.045 H (1.001-1.035) Urine Protein Negative (Negative) mg/dL Urine Glucose (UA) Negative (Negative) mg/dL
[2025-06-25] MEDS: FAMOTIDINE 20 MG/2 ML VIAL IV PUSH (10:11)
[2025-06-25] MEDS: ESCITALOPRAM OXALATE 10 MG TABLET PO (10:11)
[2025-06-25] MEDS: ROSUVASTATIN 5 MG TABLET PO (10:11)
[2025-06-25] MEDS: PHENYTOIN SODIUM 100 MG EXTENDED RELEASE CAP 300 MG PO (10:12)
--- NOTE | 2025-06-25 10:30 | P.CDI_ITS ---
CDI Query Clarification Request Please specify status of COPD, if known. * Exacerbation of COPD * No exacerbation/stable COPD * Other * Unable to determine Assessment and plan (1) Community acquired pneumonia: Code(s): J18.9 - Pneumonia, unspecified organism Status: Acute Assessment and Plan: -continue with Rocephin and doxycycline. -chest x-ray shows mild right lower lobe pneumonia. -continue with DuoNebs. -blood and sputum cultures are pending. -the patient has mild hypoxia at this time and was placed on oxygen at 4 L per nasal cannula. Please wean off when feasible. (2) COPD (chronic obstructive pulmonary disease) with emphysema: Code(s): J43.9 - Emphysema, unspecified Status: Acute Assessment and Plan: -patient's lung chris are greatly diminished at this time. His respirations are 32. -continue with dual nebs. -keep O2 saturations above 88- 90%. The patient does not wear oxygen at home but was placed on oxygen in the emergency room. Please wean off of O2 when feasible. -continue Solu-Medrol. -chest x-ray shows severe emphysema. -the patient has a history of COPD and is not on any chronic inhalers. -patient may need a pulmonary evaluation in a peripheral location. <Michelle Bland RN - Last Filed: 06/25/25 10:31> Clarified Diagnosis Clarified Diagnosis: No exacerbation/stable COPD <Alexey Aaron MD - Last Filed: 06/26/25 08:37>
--- NOTE | 2025-06-25 12:26 | P.DS_ITS ---
DS: Admitting Diagnosis Discharge Date 06/25/25 Admitting Diagnosis 06/25/25 DS: Discharge Diagnosis Discharge Diagnosis (1) Community acquired pneumonia: Code(s): J18.9 - Pneumonia, unspecified organism Status: Acute DS: Summary Hospital Course Hospital Course: 79 yo male with PMH of COPD ,Seizures, and anxiety who presented to the ER on account of one episode of coffee ground emesis. ER eval notable for CT AP and Chest which showed milf right lower lobe pneumonia and severe emphysema GI was consulted and patient started on Abx and oxygen. however this mornign patient is mostly on room air and refusing care. Gi evaluated and recommended outpatien follow up for endoscopy. Hb 11.8 and patietn has not had any mor evomiting since admission. Thus patient discharged on 7 days of Augmentin and Doxycycline. and 14 days of Protonix while waiting on GI follow up. F/u with PCP In 3-5 days F/u with GI as instructed Time Spent with Patient Time attestation: Total time spent providing and/or coordinating discharge services: DS: Data Data Completed and Pending Labs on day of discharge: Labs from last 24 hours 06/24/25 06/24/25 06/24/25 20:48 17:44 16:45 WBC RBC Hgb 11.8 L Hct 36.3 L MCV MCH MCHC RDW Plt Count MPV Immature Gran % (Auto) Neut % (Auto) Lymph % (Auto) [place] % (Auto) Eos % (Auto) Baso % (Auto) Lymph # (Auto) [place] # (Auto) Eos # (Auto) Baso # (Auto) Abs Immat Gran (auto) Absolute Neuts (auto) Absolute Nucleated RBC Nucleated RBC % PT INR APTT VBG pH VBG pCO2 VBG pO2 VBG HCO3 O2 Delivery Device O2 Liters/Min FiO2 Sodium Potassium Chloride Carbon Dioxide Anion Gap BUN Creatinine Estim Creat Clear Calc Estimated GFR Glucose POC Capillary Glucose Lactic Acid Calcium Phosphorus Magnesium Total Bilirubin AST ALT Alkaline Phosphatase Troponin I 0.024 D NT-Pro-B Natriuret Pep Total Protein Albumin Lipase Urine Color Yellow Urine Appearance Clear Urine pH 5.5 Ur Specific [place] > 1.045 H Urine Protein Negative Urine Glucose (UA) Negative Urine Ketones 1+ H Ur Blood (Man) Negative Urine Nitrate Negative Urine Bilirubin Negative Urine Urobilinogen 0.2 Leukocyte Esterase Rfl Negative Urine Opiates Screen Negative Urine Methadone Screen Negative Ur Barbiturates Screen Negative Phenytoin Ur Phencyclidine Scrn Negative Ur Amphetamine Screen Negative U Benzodiazepines Scrn Negative Urine Cocaine Screen Negative U Cannabinoids Screen Negative Ethyl Alcohol Influenza A (RT-PCR) Influenza B (RT-PCR) RSV (RT-PCR) SARS-CoV-2 RNA (RT-PCR) Blood Type Antibody Screen 06/24/25 06/24/25 06/24/25 15:12 14:49 14:36 WBC RBC Hgb Hct MCV MCH MCHC RDW Plt Count MPV Immature Gran % (Auto) Neut % (Auto) Lymph % (Auto) [place] % (Auto) Eos % (Auto) Baso % (Auto) Lymph # (Auto) [place] # (Auto) Eos # (Auto) Baso # (Auto) Abs Immat Gran (auto) Absolute Neuts (auto) Absolute Nucleated RBC Nucleated RBC % PT INR APTT VBG pH VBG pCO2 VBG pO2 VBG HCO3 O2 Delivery Device O2 Liters/Min FiO2 Sodium Potassium Chloride Carbon Dioxide Anion Gap BUN Creatinine Estim Creat Clear Calc Estimated GFR Glucose POC Capillary Glucose 118 H Lactic Acid Calcium Phosphorus Magnesium Total Bilirubin AST ALT Alkaline Phosphatase Troponin I NT-Pro-B Natriuret Pep Total Protein Albumin Lipase Urine Color Urine Appearance Urine pH Ur Specific [place] Urine Protein Urine Glucose (UA) Urine Ketones Ur Blood (Man) Urine Nitrate Urine Bilirubin Urine Urobilinogen Leukocyte Esterase Rfl Urine Opiates Screen Urine Methadone Screen Ur Barbiturates Screen Phenytoin Ur Phencyclidine Scrn Ur Amphetamine Screen U Benzodiazepines Scrn Urine Cocaine Screen U Cannabinoids Screen Ethyl Alcohol Influenza A (RT-PCR) Negative Influenza B (RT-PCR) Negative RSV (RT-PCR) Negative SARS-CoV-2 RNA (RT-PCR) Negative Blood Type B Positive Antibody Screen Negative 06/24/25 14:32 WBC 11.6 H RBC 4.64 Hgb 14.5 Hct 46.0 MCV 99.1 MCH 31.3 MCHC 31.5 L RDW 12.4 Plt Count 326 MPV 9.7 Immature Gran % (Auto) 0.4 Neut % (Auto) 86.1 H Lymph % (Auto) 5.6 L [place] % (Auto) 7.3 Eos % (Auto) 0.3 Baso % (Auto) 0.3 Lymph # (Auto) 0.65 L [place] # (Auto) 0.9 H Eos # (Auto) 0.0 Baso # (Auto) 0.0 Abs Immat Gran (auto) 0.05 H Absolute Neuts (auto) 10.0 H Absolute Nucleated RBC 0.000 Nucleated RBC % 0.0 PT 13.7 INR 1.1 APTT 26.1 VBG pH 7.383 VBG pCO2 45.4 VBG pO2 < 27.0 L VBG HCO3 26.4 O2 Delivery Device Nasal cannula O2 Liters/Min 4.0 FiO2 36 Sodium 136 L Potassium 4.4 Chloride 98 Carbon Dioxide 29 Anion Gap 9 BUN 13 Creatinine 0.58 L Estim Creat Clear Calc 72 Estimated GFR > 60 Glucose 135 H POC Capillary Glucose Lactic Acid 1.9 Calcium 9.2 Phosphorus 3.7 Magnesium 1.9 Total Bilirubin 0.5 AST 35 ALT 39 Alkaline Phosphatase 162 H Troponin I < 0.012 NT-Pro-B Natriuret Pep 69 Total Protein 7.9 Albumin 4.6 Lipase 148 Urine Color Urine Appearance Urine pH Ur Specific [place] Urine Protein Urine Glucose (UA) Urine Ketones Ur Blood (Man) Urine Nitrate Urine Bilirubin Urine Urobilinogen Leukocyte Esterase Rfl Urine Opiates Screen Urine Methadone Screen Ur Barbiturates Screen Phenytoin 12 Ur Phencyclidine Scrn Ur Amphetamine Screen U Benzodiazepines Scrn Urine Cocaine Screen U Cannabinoids Screen Ethyl Alcohol < 10 Influenza A (RT-PCR) Influenza B (RT-PCR) RSV (RT-PCR) SARS-CoV-2 RNA (RT-PCR) Blood Type Antibody Screen Discharge Plan Discharge Attending physician on discharge: Alexey Aaron Consulting providers: Oscar Salvador Discharging Clinician: Alexey Aaron Anticipated Discharge Date/Time: 06/25/25 12:22 Patient Disposition: NH Intermediate/Asst Living Activity: as tolerated Diet: as tolerated and heart healthy Patient Instructions: Antibiotic Form Patient Language: [place] Stand Alone Forms: General Discharge Information Follow-up/Referrals: Kvng Cook MD [Primary Care Provider, Family Practice] Referral Note: F/u with PCP in 3-5 days Oscar Salvador MD [Physician, Gastroenterology] Referral Note: F/u with GI as instructed Discharge Medications: New amoxicillin-pot clavulanate 875-125 mg tablet 1 tablet PO Q12H 7 Days Qty: 14 0RF doxycycline hyclate 100 mg tablet 100 mg PO BID 7 Days Qty: 14 0RF pantoprazole [Protonix] 40 mg tablet,delayed release (DR/EC) 40 mg PO HS 14 Days Qty: 14 0RF Continued escitalopram oxalate 10 mg tablet 10 mg PO DAILY Qty: 90 0RF PreserVision AREDS-2 250-90-40-1 mg capsule 1 tablet PO BID phenytoin sodium extended 100 mg capsule 300 mg PO BID rosuvastatin 5 mg tablet 5 mg PO DAILY Qty: 100 1RF mirtazapine 30 mg tablet 30 mg PO QHS Qty: 90 0RF lisinopril 40 mg tablet 40 mg PO DAILY Qty: 100 1RF Date of admission: 06/24/25 19:23 Primary Care Provider: Kvng Cook Admitting Provider: Francesca Mak Attending physician on admission: Francesca Mak Condition: Stable
== END 2025-06-25 12:34 | DRG 193 ==
LOC: ANHED 19:11 → ANHIMU 06-25 12:23
PROVIDERS: Admitting Provider Internal Medicine; Emergency Provider Emergency Medicine; PCP Family Medicine; Visit Provider Internal Medicine
DX: J18.9 Pneumonia, unspecified organism (principal); J96.01 Acute respiratory failure with hypoxia; E44.1 Mild protein-calorie malnutrition; J44.0 Chronic obstructive pulmonary disease with (acute) lower respiratory infection; K92.0 Hematemesis; J43.9 Emphysema, unspecified; K21.9 Gastro-esophageal reflux disease without esophagitis; R00.0 Tachycardia, unspecified; G40.909 Epilepsy, unspecified, not intractable, without status epilepticus; I25.10 Atherosclerotic heart disease of native coronary artery without angina pectoris; I10 Essential (primary) hypertension; I45.10 Unspecified right bundle-branch block; F41.9 Anxiety disorder, unspecified; F32.A Depression, unspecified; K59.00 Constipation, unspecified; E78.5 Hyperlipidemia, unspecified; F10.20 Alcohol dependence, uncomplicated; Z20.822 Contact with and (suspected) exposure to COVID-19; D64.89 Other specified anemias; Z66 Do not resuscitate; Z86.79 Personal history of other diseases of the circulatory system; Z87.891 Personal history of nicotine dependence; Z99.3 Dependence on wheelchair; Z68.28 Body mass index [BMI] 28.0-28.9, adult; Z86.0101 Personal history of adenomatous and serrated colon polyps
CPT/HCPCS: 36415; 71045; 71275; 74174; 80053; 80185; 80307; 81003; 82077; 82803; 82948; 83605; 83690; 83735; 83880; 84100; 84484; 85014; 85018; 85025; 85610; 85730; 86850; 86900; 86901; 87040; 87637; 93005; 94640; 96365; 96367; 96375; 99285; A9270; J0696; J2470; J2765; J2919; J3360; J7120; Q9967